=== PATIENT | female | born 1970 | race Caucasian/White ===

== ENCOUNTER 2019-07-13 03:12 | Emergency (ER) | payer MEDICAID, SELFPAY ==
[2019-07-13 03:31] VITALS: BP 134/83; PULSE 104; RESP 16; TEMP 36.6; O2SAT 97; BMI 31.1
--- NOTE | 2019-07-13 03:48 | HMH.EDUROGF ---
ED Disposition Clinical Impression: Vaginal bleeding Disposition: Home, Self-Care Condition on Discharge: Good Instructions: DI for Vaginal Bleeding Prescriptions: Estrogens, Conjugated [Premarin 0.625mg tablet] 0.625 mg PO DAILY 30 Days #25 tab Prescription Printed - Critical Care Critical Care Time: No Attestation: On , the high probability of a clinically significant, sudden or life threatening deterioration of the following system(s) required my full and direct attention, intervention and personal management. The time I documented below is in addition to time spent performing reported procedures but includes the following listed in this critical care notation. Medical Decision Making - Medical Records Medical records reviewed: Yes: I reviewed the patient's medical records. - Bobby Inquiry Pt receiving controlled substance: No Vital Signs: 07/13/19 03:31 Temperature 97.9 F Temperature Source Oral Pulse Rate [Left Brachial] 104 H Respiratory Rate 16 Blood Pressure [Left Arm] 134/83 Blood Pressure Mean [Left Arm] 100 Blood Pressure Source [Left Arm] Automatic Cuff Blood Pressure Position [Left Arm] Sitting 02 Sat by Pulse Oximetry 97 Oxygen Delivery Method Room Air - Lab Data Lab results reviewed: Yes: I reviewed the patient's lab results. Female Urogenital HPI - General Chief complaint: Vaginal Bleeding Stated complaint: Excessive Vaginal Bleeding Time Seen by Provider: 07/13/19 03:14 Mode of Arrival: Ambulatory Source of Information: Patient Limitations: No Limitations Description of Symptoms (Recalled from ER Triage Doc. by RN): Patient reports she is going through menopause and for the last four months she has had some light spotting. Today while playing with her grandson, patient reprots feeling a gush of blood. Patient for reports for several hours after she experienced some heavy bleeding with clots. Patient reports since then the bleeding has eased up but she still wanted to be evaluated. - History of Present Illness Complaint: vaginal bleeding Onset (ago): hour(s) Location: labia Radiation: non-radiating Severity: mild Severity scale (1-10): 2 Quality: cramping Relieving factors: none Exacerbating factors: none Vaginal discharge: blood Sexual activity: no : no - Related Data Previous Rx's Medication Instructions Recorded Estrogens, Conjugated [Premarin 0.625 mg PO DAILY 30 Days #25 tab 07/13/19 0.625mg tablet] Allergies Allergy/AdvReac Type Severity Reaction Status Date / Time No Known Allergies Allergy Verified 07/13/19 03:38 [facility] History - Hepatitis A Screen Drug use history?: No High risk sexual behaviors?: No History of sexually transmitted infection?: No Currently employed?: No Childcare worker?: No Do you have indoor plumbing?: Yes Do you have electricity?: Yes Attestation statement:: This patient has been screened for Hepatitis A risk factors. I have reviewed the patient's past medical history: Yes - Social History Smoking Status: Current every day smoker # Packs/Day (cigarettes): 1 Alcohol Intake: never Occupational Status: employed ROS Obtained: Yes All systems reviewed & no additional complaints - Constitutional Constitutional: Reports system reviewed and no additional complaints, except as docu - Eyes Eyes: Reports system reviewed and no additional complaints, except as docu - ENT Ears, Nose, Mouth, and Throat: Reports system reviewed and no additional complaints, except as docu - Cardiovascular Cardiovascular: Reports system reviewed and no additional complaints, except as docu - Respiratory Respiratory: Yes system reviewed and no additional complaints, except as docu - Gastrointestinal Gastrointestingal: Reports: system reviewed and no additional complaints, except as docu - Genitourinary Male Genitourinary: Reports system reviewed and no additional complaints, except as docu Female Genitourinary: Reports
[2019-07-13 04:09] LABS: Basophils # 0.1 K/mm3 (0-0.2); Basophils % 0.8 % (0.1-2.0); Eosinophils # 0.4 K/mm3 (0.0-0.4); Eosinophils % 2.7 % (0.1-12.0); Hematocrit 39.7 % (37.0-47.0); Hemoglobin 13.1 g/dL (12.2-16.2); Lymphocytes # 2.9 K/mm3 (0.7-4.5); Lymphocytes % 18.7 % (10-50); Mean Corpuscular HGB Conc 33.1 g/dL (31.8-35.4); Mean Corpuscular Hemoglobin 31.7 pg (27.0-31.2); Mean Corpuscular Volume 95.8 fl (81-99); Mean Platelet Volume 8.3 fl (7.4-10.4); Monocytes # 0.7 K/mm3 (0.1-1.0); Monocytes % 4.2 % (1.7-9.3); Neutrophils # 11.5 K/mm3 (1.8-7.8); Neutrophils % 73.6 % (37.0-80.0); Platelet Count 262 K/mm3 (142-424); Red Blood Count 4.14 M/mm3 (4.20-5.40); Red Cell Distribution Width 14.4 % (11.5-17.5); White Blood Count 15.6 K/mm3 (4.8-10.8)
[2019-07-13 04:11] LABS: MANUAL DIFFERENTIAL MANUAL DIFFERENTIAL (MANUAL DIFF)
[2019-07-13 04:26] LABS: Eosinophils % 2 % (0-3); Lymphocytes % 15 % (10-50); Monocytes % 2 % (2-9); Neutrophils % 78 % (42-76); Platelet Estimate Normal; RBC Morphology Normal; Total Cells Counted 100
[2019-07-13 04:29] VITALS: BP 130/84; PULSE 96; RESP 16; TEMP 36.6; O2SAT 98
== END 2019-07-13 04:31 | disposition home or self-care (01) ==
LOC: ER 04:11
PROVIDERS: Emergency Provider Family Medicine
DX: N92.4 Excessive bleeding in the premenopausal period (principal)
CPT/HCPCS: 85007; 85025; 99282

== ENCOUNTER → 2020-12-07 19:49 | Outpatient (CLI) | payer MEDICAID, SELFPAY | PROVIDERS: Visit Provider Urology | DX: Z01.812 Encounter for preprocedural laboratory examination (principal); Z11.52 Encounter for screening for COVID-19; N18.30 Chronic kidney disease, stage 3 unspecified | CPT/HCPCS: C9803; U0003; U0005 ==

== ENCOUNTER 2021-01-09 07:32 | Emergency (ER) | payer MEDICAID, SELFPAY ==
[2021-01-09 08:01] VITALS: BP 144/100; PULSE 108; RESP 16; TEMP 37.2; O2SAT 99; BMI 19.3
--- NOTE | 2021-01-09 08:21 | CT_ITS ---
PROCEDURE INFORMATION: Exam: CT Abdomen And Pelvis Without Contrast Exam date and time: 01/09/2021 8:21 AM Age: 50 years old Clinical indication: Bloating; Prior surgery; Surgery date: 6+ months; Surgery type: History of cervical cancer and surgery-- as well as kidney issues; Additional info: Abd pain- lower abd tender and pain TECHNIQUE: Imaging protocol: Computed tomography of the abdomen and pelvis without contrast. Radiation optimization: All CT scans at this facility use at least one of these dose optimization techniques: automated exposure control; mA and/or kV adjustment per patient size (includes targeted exams where dose is matched to clinical indication); or iterative reconstruction. COMPARISON: No relevant prior studies available. FINDINGS: Tubes, catheters and devices: Left nephrostomy tube in right ureteral stent are in place. Diaphragm: There is nonspecific elevation of the right hemidiaphragm. Liver: Normal. No mass. Gallbladder and bile ducts: There has been a cholecystectomy. Pancreas: Normal. No ductal dilation. Spleen: Normal. No splenomegaly. Adrenal glands: Normal. No mass. Kidneys and ureters: Left hydronephrosis. There is inflammatory left perinephric stranding with a small amount of perinephric fluid. Stomach and bowel: Unremarkable. No obstruction. No mucosal thickening. Appendix: No evidence of appendicitis. Intraperitoneal space: Unremarkable. No free air. No significant fluid collection. Vasculature: There is moderate aortoiliac atherosclerosis. Lymph nodes: Unremarkable. No enlarged lymph nodes. Urinary bladder: Unremarkable as visualized. Reproductive: Unremarkable as visualized. Bones/joints: Unremarkable. No acute fracture. Soft tissues: Unremarkable. IMPRESSION: 1. Left hydronephrosis. 2. There is inflammatory left perinephric stranding with a small amount of perinephric fluid.
--- NOTE | 2021-01-09 08:23 | HMH.EDGENADL ---
ED Disposition Clinical Impression: Obstructed nephrostomy tube, Left flank pain Disposition: Home, Self-Care Condition on Discharge: Good Additional Instructions: Please call your mattress maker on Monday for further evaluation, return to the ED with worsening pain, or no output from your nephrostomy tube, we will also refer you for a primary care physician who will be able to see you early next week. Prescriptions: Cefdinir [Omnicef 300mg Capsule] 300 mg PO BID 5 Days #10 cap Transmission Status: Pending to [facility] Oxycodone HCl [Oxycodone 5mg tab (IR)] 2.5 mg PO Q6 #6 tablet Transmission Status: Sent to [facility] Ondansetron [Zofran 4mg ODT] 4 mg PO Q6 PRN #12 tab PRN Reason: Nausea Transmission Status: Pending to [facility] Referrals: Provider,Referral, MD [Primary Care Provider] - - Critical Care Critical Care Time: No Attestation: On 01/09/21, the high probability of a clinically significant, sudden or life threatening deterioration of the following system(s) required my full and direct attention, intervention and personal management. The time I documented below is in addition to time spent performing reported procedures but includes the following listed in this critical care notation. Medical Decision Making - Medical Records Medical records reviewed: Yes: I reviewed the patient's medical records. - Bobby Inquiry Pt receiving controlled substance: No Bobby was queried for this patient: Yes (No active scripts) Vital Signs: 01/09/21 08:01 Temperature 98.9 F Temperature Source Oral Pulse Rate [Left Radial] 108 H Respiratory Rate 16 Blood Pressure [Right Arm] 144/100 H Blood Pressure Mean [Right Arm] 114 02 Sat by Pulse Oximetry 99 Oxygen Delivery Method Room Air - Lab Data Lab Results 01/09/21 08:00: WBC 12.2 H, RBC 3.71 L, Hgb 12.0 L, Hct 35.6 L, MCV 96.1, MCH 32.3 H, MCHC 33.7, RDW 15.8, Plt Count 243, MPV 8.3, Neut % (Auto) 90.9 H, Lymph % (Auto) 3.7 L, [place] % (Auto) 4.3, Eos % (Auto) 0.8, Baso % (Auto) 0.3, Neut # (Auto) 11.1 H, Lymph # (Auto) 0.5 L, [place] # (Auto) 0.5, Eos # (Auto) 0.1, Baso # (Auto) 0.0, Total Counted 100, Neutrophils % (Manual) 83 H, Band Neutrophils % 6.0, Lymphocytes % (Manual) 7 L, Monocytes % (Manual) 4, Platelet Estimate Normal, RBC Morphology Normal 01/09/21 08:00: Sodium 138, Potassium 3.8, Chloride 104, Carbon Dioxide 23, Anion Gap 14.8, BUN 23 H, Creatinine 1.60 H, Estimated Creat Clear 32, Estimated GFR 34 L, Est GFR ( Amer) 41 L, Glucose 131 H, Calcium 9.5, Total Bilirubin 0.3, AST 22, ALT 14, Alkaline Phosphatase 94, Total Protein 7.5, Albumin 3.9, Globulin 3.6 H, Albumin/Globulin Ratio 1.1 Result diagrams: 01/09/21 08:00 01/09/21 08:00 Orders (Tests/Meds): ED MEDICATIONS Discontinued Medications Generic Name Dose Route Start Last Admin Trade Name Freq PRN Reason Stop Dose Admin Sodium Chloride 1,000 mls @ 999 mls/hr 01/09/21 08:45 01/09/21 08:41 Sod Chlor 0.9% 1000ml Bag IV 01/09/21 09:45 999 mls/hr .Q1H1M JOHNSON Administration Ketorolac Tromethamine 15 mg 01/09/21 08:21 01/09/21 08:40 Ketorolac 30mg/Ml Vial IV 01/09/21 08:22 15 mg ONCE ONE Administration ORDERS Category Date Time Status UA [Urinalysis and Microscopic] Stat Lab 01/09/21 08:24 Ordered - Reevaluation(s) Time: 09:07 Reevaluation #1: pain improved, going to CT Medical Decision Narrative: Patient is a 50-year-old female presents ED today for left nephrostomy tube pain. Patient is well-appearing on initial evaluation in no acute distress, does appear to be in pain, no bleeding or evidence of infection from the nephrostomy tube site, but no urine flow from this per patient. Will order CBC, CMP, urinalysis. Patient will require CT scan of the abdomen and pelvis without IV contrast for left nephrostomy tube location. 15 mg of IV Toradol. CT scan obtained, and independently were reviewed with no marco
[2021-01-09 08:24] LABS: Basophils % 0.3 % (0.1-2.0); Eosinophils # 0.1 K/mm3 (0.0-0.4); Eosinophils % 0.8 % (0.1-12.0); Hematocrit 35.6 % (37.0-47.0); Lymphocytes # 0.5 K/mm3 (0.7-4.5); Lymphocytes % 3.7 % (10-50); Mean Corpuscular HGB Conc 33.7 g/dL (31.8-35.4); Mean Corpuscular Hemoglobin 32.3 pg (27.0-31.2); Mean Corpuscular Volume 96.1 fl (81-99); Mean Platelet Volume 8.3 fl (7.4-10.4); Monocytes # 0.5 K/mm3 (0.1-1.0); Monocytes % 4.3 % (1.7-9.3); Neutrophils # 11.1 K/mm3 (1.8-7.8); Neutrophils % 90.9 % (37.0-80.0); Platelet Count 243 K/mm3 (142-424); Red Blood Count 3.71 M/mm3 (4.20-5.40); Red Cell Distribution Width 15.8 % (11.5-17.5); White Blood Count 12.2 K/mm3 (4.8-10.8)
[2021-01-09 08:25] LABS: Chloride 104 mmol/L (98-107)
[2021-01-09 08:26] LABS: Potassium 3.8 mmoL/L (3.5-5.1); Sodium 138 mmol/L (136-145)
[2021-01-09 08:28] LABS: Alanine Aminotransferase 14 U/L (12-78); Alkaline Phosphatase 94 U/L (38-126); Anion Gap 14.8 mEq/L (5-15); Aspartate Amino Transferase 22 U/L (14-36); Bilirubin,Total 0.3 mg/dl (0.2-1.3); Blood Urea Nitrogen 23 mg/dl (7-17); Carbon Dioxide 23 mmol/L (22.0-30.0); Creatinine Clearance Estimated 32 mL/min (50-200); Estimated Glomerular Filt Rate 34 ml/min (>60); GFR (African American) 41 ML/MIN (>60)
[2021-01-09 08:29] LABS: Albumin Level 3.9 g/dl (3.5-5.0); Albumin/Globulin Ratio 1.1 (1.1-1.8); Calcium 9.5 mg/dl (8.4-10.2); Globulin 3.6 g/dL (1.3-3.2); Glucose 131 mg/dl (74-100); Total Protein,Serum 7.5 g/dl (6.3-8.2)
--- NOTE | 2021-01-09 08:36 | PC.NURSE ---
per pharmacy, pt is safe to have 15mg ketorolac
[2021-01-09 08:42] LABS: MANUAL DIFFERENTIAL MANUAL DIFFERENTIAL (MANUAL DIFF)
[2021-01-09 09:00] VITALS: BP 138/90; PULSE 102; RESP 16; TEMP 37.1; O2SAT 100
[2021-01-09 09:20] LABS: Lymphocytes % 7 % (10-50); Monocytes % 4 % (2-9); Neutrophils % 83 % (42-76); Platelet Estimate Normal; RBC Morphology Normal; Total Cells Counted 100
[2021-01-09 10:00] VITALS: BP 139/92; PULSE 104; RESP 17; O2SAT 99
[2021-01-09 11:00] VITALS: BP 131/89; PULSE 98; RESP 16; O2SAT 99
[2021-01-09 11:55] VITALS: BP 131/89; PULSE 98; RESP 16; TEMP 37.1; O2SAT 99
== END 2021-01-09 11:57 | disposition home or self-care (01) ==
PROVIDERS: Emergency Provider Student in an Organized Health Care Education/Training Program
DX: T83.092A Other mechanical complication of nephrostomy catheter, initial encounter (principal)
CPT/HCPCS: 74176; 80053; 85007; 85025; 87086; 87088; 87186; 96365; 96375; 99283

== ENCOUNTER 2021-05-02 19:59 | Inpatient (IN) | payer MEDICAID, SELFPAY ==
[2021-05-02] VITALS (8 sets, daily range): BP systolic 102–138; BP diastolic 70–81; PULSE 76–87; RESP 15–22; TEMP 36.7; O2SAT 97–100; BMI 19.2; BMI 19.3
--- NOTE | 2021-05-02 20:30 | ECG_ITS ---
APPROVED REPORT Exam: Resting ECG HR:84 bpm ECG Measurements Heart Rate 84 AXES PA 143 P 78 QRSd 73 QRS 63 QT 392 T 85 QTc 433 Conclusion SINUS RHYTHM MINIMAL VOLTAGE CRITERIA FOR LVH, CONSIDER NORMAL VARIANT [MEETS CRITERIA IN ONE OF: R(aVL), S(V1), R(V5), R(V5/V6)+S(V1)] NONSPECIFIC T-WAVE ABNORMALITY BORDERLINE ECG UNCONFIRMED REPORT Electronically signed by : Chay Goins MD 05/03/2021 13:40:34
--- NOTE | 2021-05-02 20:30 | XR_ITS ---
PROCEDURE INFORMATION: Exam: XR Chest Exam date and time: 05/02/2021 8:30 PM Age: 50 years old Clinical indication: Shortness of breath; Patient HX: PT states HX of cervical cancer in past; Additional info: SOA TECHNIQUE: Imaging protocol: XR of the chest. Views: 2 views. COMPARISON: CT ANGIO CHEST PE PROTOCOL 05/02/2021 8:29 PM FINDINGS: Lungs: Unremarkable. No consolidation. Pleural spaces: Unremarkable. No pleural effusion. No pneumothorax. Heart/Mediastinum: Unremarkable. No cardiomegaly. Bones/joints: Unremarkable. IMPRESSION: No acute findings.
--- NOTE | 2021-05-02 20:32 | CT_ITS ---
PROCEDURE INFORMATION: Exam: CTA Chest With Contrast Exam date and time: 05/02/2021 8:32 PM Age: 50 years old Clinical indication: Shortness of breath; Additional info: SOA sudden onset TECHNIQUE: Imaging protocol: Computed tomographic angiography of the chest with contrast. 3D rendering (Not supervised by radiologist): MIP and/or 3D reconstructed images were created by the technologist. Radiation optimization: All CT scans at this facility use at least one of these dose optimization techniques: automated exposure control; mA and/or kV adjustment per patient size (includes targeted exams where dose is matched to clinical indication); or iterative reconstruction. Contrast material: ISOVUE 370; Contrast volume: 70 ml; Contrast route: INTRAVENOUS (IV); COMPARISON: CT ABDOMEN PELVIS WO CON 01/09/2021 9:08 AM FINDINGS: Pulmonary arteries: Normal. No pulmonary emboli. Aorta: Unremarkable. No aortic aneurysm. No aortic dissection. Lungs: 2 cm mass in the inferior right upper lobe concerning for malignancy. Atelectasis in the right lower lobe. Slightly spiculated lesion in the left upper lobe 6 mm. Pleural spaces: There is a 20% right anterior basilar pneumothorax. Heart: Unremarkable. No cardiomegaly. No pericardial effusion. Lymph nodes: Unremarkable. No enlarged lymph nodes. Adrenal glands: Upper abdomen reveals thickening of bilateral adrenal glands and small amount of perihepatic free fluid. Bones/joints: Unremarkable. No acute fracture. Soft tissues: Unremarkable. Other findings: Emphysema. IMPRESSION: 1. No pulmonary embolism. 2. 20% right anterior basilar pneumothorax. 3. 2 cm mass in the inferior right upper lobe and 6 mm nodule in the left upper lobe both concerning for malignancy. Highly suspicious nodule(s). Consider non-emergent PET/CT, or tissue sampling.(Reference: Rebecca) References: Rebecca Persaud et al. Guidelines for Management of Incidental Pulmonary Nodules Detected on CT Images: From the Fleischner Society 2017. Radiology. 2017;284(1):228-243.
[2021-05-02 20:35] LABS: Coronavirus 19, PCR Not Detected (NotDetected); Influenza A, PCR Not Detected (NotDetected); Influenza B, PCR Not Detected (NotDetected)
[2021-05-02 20:37] LABS: Basophils # 0.1 K/mm3 (0-0.2); Basophils % 0.7 % (0.1-2.0); Eosinophils # 0.2 K/mm3 (0.0-0.4); Eosinophils % 2.2 % (0.1-12.0); Hematocrit 37.1 % (37.0-47.0); Hemoglobin 12.3 g/dL (12.2-16.2); Lymphocytes # 1.2 K/mm3 (0.7-4.5); Lymphocytes % 10.5 % (10-50); Mean Corpuscular HGB Conc 33.1 g/dL (31.8-35.4); Mean Corpuscular Volume 99.8 fl (81-99); Mean Platelet Volume 8.1 fl (7.4-10.4); Monocytes # 0.4 K/mm3 (0.1-1.0); Monocytes % 3.4 % (1.7-9.3); Neutrophils # 9.1 K/mm3 (1.8-7.8); Neutrophils % 83.1 % (37.0-80.0); Platelet Count 340 K/mm3 (142-424); Red Blood Count 3.72 M/mm3 (4.20-5.40); Red Cell Distribution Width 14.4 % (11.5-17.5); White Blood Count 10.9 K/mm3 (4.8-10.8)
--- NOTE | 2021-05-02 20:37 | HMH.EDSOB ---
ED Disposition Clinical Impression: Pneumothorax on right Disposition: Admitted as Observation Condition on Discharge: Good - Critical Care Critical Care Time: No Attestation: On 05/02/21, the high probability of a clinically significant, sudden or life threatening deterioration of the following system(s) required my full and direct attention, intervention and personal management. The time I documented below is in addition to time spent performing reported procedures but includes the following listed in this critical care notation. Medical Decision Making - Medical Records Medical records reviewed: Yes: I reviewed the patient's medical records. - Bobby Inquiry Pt receiving controlled substance: No Vital Signs: 05/02/21 20:17 05/02/21 20:30 05/02/21 20:45 Temperature 98.1 F Temperature Source Oral Pulse Rate 76 87 Pulse Rate [Right Radial] 83 Respiratory Rate 21 18 Blood Pressure 112/73 Blood Pressure [Right Arm] 138/81 Blood Pressure Mean [Right Arm] 100 Blood Pressure Source [Right Arm] Automatic Cuff Blood Pressure Position [Right Arm] Sitting 02 Sat by Pulse Oximetry 100 97 Oxygen Delivery Method Room Air Room Air - Lab Data Lab results reviewed: Yes: I reviewed the patient's lab results. Lab Results 05/02/21 20:05: WBC 10.9 H, RBC 3.72 L, Hgb 12.3, Hct 37.1, MCV 99.8 H, MCH 33.0 H, MCHC 33.1, RDW 14.4, Plt Count 340, MPV 8.1, Neut % (Auto) 83.1 H, Lymph % (Auto) 10.5, [place] % (Auto) 3.4, Eos % (Auto) 2.2, Baso % (Auto) 0.7, Neut # (Auto) 9.1 H, Lymph # (Auto) 1.2, [place] # (Auto) 0.4, Eos # (Auto) 0.2, Baso # (Auto) 0.1, ESR 79 H 05/02/21 20:05: Sodium 139, Potassium 3.6, Chloride 106, Carbon Dioxide 23, Anion Gap 13.6, BUN 21 H, Creatinine 1.10 H, Estimated Creat Clear 47, Estimated GFR 53 L, Est GFR ( Amer) 64, Glucose 131 H, Calcium 9.2, Total Bilirubin 0.3, Direct Bilirubin 0.3, Conjugated Bilirubin 0.0, Indirect Bilirubin 0.0, Unconjugated Bilirubin 0.1, AST 20, ALT 13, Alkaline Phosphatase 91, Troponin I < 0.01, C-Reactive Protein 28.8 H, Total Protein 7.6, Albumin 4.2, Procalcitonin 0.077 05/02/21 20:05: Lactate 1.8 05/02/21 20:05: SARS-CoV-2 (PCR) Not detected, Influenza A Untype (PCR) Not detected, Influenza Type B (PCR) Not detected 05/02/21 20:05: Serum HCG, Qual Negative Result diagrams: 05/02/21 20:05 05/02/21 20:05 Orders (Tests/Meds): ED MEDICATIONS Discontinued Medications Generic Name Dose Route Start Last Admin Trade Name Freq PRN Reason Stop Dose Admin Sodium Chloride 1,000 mls @ 999 mls/hr 05/02/21 20:30 05/02/21 20:53 Sod Chlor 0.9% 1000ml Bag IV 05/02/21 21:30 999 mls/hr .Q1H1M JOHNSON Administration Iopamidol 70 ml 05/02/21 21:43 05/02/21 21:45 Iopamidol-370 (76%);100ml Bottle IV 05/02/21 21:44 70 ml ONCE ONE Administration Methylprednisolone Sodium Succinate 125 mg 05/02/21 20:31 05/02/21 20:53 Methylprednisolone Sod Succ 125mg Vial IV 05/02/21 20:32 125 mg ONCE ONE Administration Sodium Chloride 40 ml 05/02/21 21:43 05/02/21 21:45 0.9 % Sodium Chloride 50 Ml Vial IV 05/02/21 21:44 40 ml ONCE ONE Administration Sodium Chloride 10 ml 05/02/21 21:43 05/02/21 21:45 Sodium Chloride 0.9% 10ml Syr (Rad Only) IV 05/02/21 21:44 10 ml ONCE ONE Administration ORDERS Category Date Time Status Troponin I Q3H Lab 05/02/21 23:45 Ordered Troponin I Q3H Lab 05/03/21 02:45 Ordered Blood Culture Stat Micro 05/02/21 20:05 Received - Radiology Data #1 Image(s): Chest Image Reviewed: Yes I have reviewed radiologist's interpretation Preliminary Findings: Normal/NAD - CT Data CT Scan: Chest Time Received: 22:[address] Reviewed: Yes: I have viewed the radiologist's interpretation Preliminary Findings: Abnormal (see report ) - ECG Data Tracing #1 Normal Sinus Rhythm: Yes Ischemic changes: non-specific ST-T wave changes - Physician Consults Physician Consulted: kristin Wooten
[2021-05-02 20:43] LABS: Alanine Aminotransferase 13 U/L (12-78); Albumin Level 4.2 g/dl (3.5-5.0); Alkaline Phosphatase 91 U/L (38-126); Anion Gap 13.6 mEq/L (5-15); Aspartate Amino Transferase 20 U/L (14-36); Bilirubin,Direct 0.3 mg/dl (0.0-0.4); Bilirubin,Total 0.3 mg/dl (0.2-1.3); Bilirubin,Unconjugated 0.1 mg/dL (0.0-1.1); Blood Urea Nitrogen 21 mg/dl (7-17); Calcium 9.2 mg/dl (8.4-10.2); Carbon Dioxide 23 mmol/L (22.0-30.0); Chloride 106 mmol/L (98-107); Creatinine Clearance Estimated 47 mL/min (50-200); Estimated Glomerular Filt Rate 53 ml/min (>60); GFR (African American) 64 ML/MIN (>60); Glucose 131 mg/dl (74-100); HCG Qualitative, Serum Negative (Negative); Potassium 3.6 mmoL/L (3.5-5.1); Sodium 139 mmol/L (136-145); Total Protein,Serum 7.6 g/dl (6.3-8.2)
[2021-05-02 20:49] LABS: C-Reactive Protein 28.8 mg/L (0-4)
[2021-05-02 21:01] LABS: Lactic Acid 1.8 mmol/L (0.7-2.1); Troponin I < 0.01 ng/ml (0.00-0.034)
[2021-05-02 21:02] LABS: Procalcitonin 0.077 ng/mL (0.0-2.0)
[2021-05-02 21:06] LABS: Erythrocyte Sedimentation Rate 79 mm/hr (0-20)
--- NOTE | 2021-05-02 22:07 | PC.NURSE ---
received call back from ad re: patient. md on phone at this time.
--- NOTE | 2021-05-02 22:23 | PC.NURSE ---
paged dr jarvis for care.
--- NOTE | 2021-05-02 22:32 | PC.NURSE ---
Notified roundhouse supervisor of pt admission and need for bed assignment
--- NOTE | 2021-05-02 23:19 | PC.NURSE ---
PT ARRIVED TO FLOOR VIA W/C FROM ED W/STAFF @ [id number]
--- NOTE | 2021-05-02 23:40 | PC.NURSE ---
Pt given soup, crackers, soda, and PB as she missed dinner.
[2021-05-03] VITALS (9 sets, daily range): BP systolic 119–157; BP diastolic 75–97; PULSE 77–97; RESP 17–20; TEMP 36.3–37.1; O2SAT 95–99
--- NOTE | 2021-05-03 03:35 | PC.WOUNDNOTE ---
Pt is A&Ox4 and has ambulated well t/o shift. Denies any chest pain or SOB that brought her to ER. She does report pelvic pain that is chronic and has kept her up tonight, medicated per MAR with relief. Denies nausea, vomiting and diarrhea t/o shift. Does report BM this am. PIV to LAC is patent and blood return is noted. Lungs sounds are clear, scattered rhonchi noted. She continues on room air sats 97-100%. NSR on tele. Call light within reach.
--- NOTE | 2021-05-03 06:48 | PC.NURSE ---
DR HANNA NOTIFIED OF CONSULT
--- NOTE | 2021-05-03 07:00 | XR_ITS ---
FINAL REPORT TECHNIQUE: Single view chest CLINICAL HISTORY: pneumothorax follow-up COMPARISON: 05/02/2021 FINDINGS: A single view of the chest was obtained. The heart and mediastinum are within normal limits. Small right pneumothorax is stable superiorly, measuring 12 mm but has increased laterally, now measuring 8 mm. There is mild bibasilar atelectasis. Osseous structures are unremarkable. IMPRESSION: Small but increasing right pneumothorax as above. Reviewed, Interpreted and Dictated by Pako Slade III, MD Transcribed by Erika Blanchard Authenticated by Pako Slade III, MD on 05/03/2021 08:04:47 AM [facility]
[2021-05-03 07:10] LABS: Blood Urea Nitrogen 17 mg/dl (7-17); Calcium 8.6 mg/dl (8.4-10.2); Carbon Dioxide 19 mmol/L (22.0-30.0); Chloride 111 mmol/L (98-107); Creatinine Clearance Estimated 57 mL/min (50-200); Estimated Glomerular Filt Rate 67 ml/min (>60); GFR (African American) 81 ML/MIN (>60); Glucose 138 mg/dl (74-100); Sodium 138 mmol/L (136-145)
--- NOTE | 2021-05-03 07:26 | PC.NURSE ---
s/w Dr. Justin he would like pt on O2 @ 2LPM NC despite adequate room air sats d/t pneumothorax.
--- NOTE | 2021-05-03 07:27 | P.CONPHA_ITS ---
[facility] Pharmacy VTE Monitoring - Patient Demographics Admission date: 05/02/21 Report Date: 05/03/21 Time: 07:27 Allergies/Adverse Reactions: Patient Allergies No Known Allergies Allergy (Verified 07/13/19 03:38) Height: 1.57 m Weight: 47.627 kg Patient Problems: Current Active Problems Pneumothorax on right (Acute) - VTE Risk Labs: VTE Related Lab Results Hgb 12.3 g/dL (12.2-16.2) 05/02/21 20:05 Hct 37.1 % (37.0-47.0) 05/02/21 20:05 Plt Count 340 K/mm3 (142-424) 05/02/21 20:05 BUN 17 mg/dl (7-17) 05/03/21 06:50 Creatinine 0.90 mg/dl (0.52-1.04) 05/03/21 06:50 Estimated Creat Clear 57 mL/min (50-200) 05/03/21 06:50 VTE Score: 7 VTE Risk Level: Moderate Risk - Prophylaxis VTE Prophylaxis Ordered?: Yes Types of VTE Prophylaxis: TEDS Knee High Location of Applied Device: Bilateral Lower Extremeties
--- NOTE | 2021-05-03 07:30 | HMH.HP ---
*Admission Date: 05/02/21 *Chief complaint: Shortness of breath, chest pain *History of present illness: 50-year-old female presented to the emergency department after acute onset of right lateral chest pain. Patient reports she was in her normal state of health when pain suddenly developed at home. When pain did not seem to be easing she presented to the emergency department. Patient is undergoing malignancy work-up for a right lung mass and had recently undergone CT-guided biopsy on April 28. Patient is a cigarette smoker. In an attempt to cut back she has been vaping. She also admits to smoking marijuana. Work-up in the emergency department included initial chest x-ray which was unremarkable. Due to patient's pain and possible malignancy there was concern for PE. CT scan was negative for PE but did reveal a pneumothorax. Patient was admitted for conservative treatment of her pneumothorax. This morning she has been placed on oxygen. [facility] History I have reviewed the patient's past medical history: Yes Medical History: Reports:: Cancer, Renal Disease Denies:: Diabetes Mellitus Type 1, Diabetes Mellitus Type 2 *Have you ever received a pneumonia vaccine?: No *Have you received a flu vaccine this season?: No Other Medical History: Reports: Radiation Therapy Other Surgeries: Yes: Cholecystectomy, (x1), Ureter Stent Amputation: No Fractures: No - *Social History Last grade of school completed: High school graduate Smoking Status: Current every day smoker Tobacco Type: cigarettes, e-cigarettes # Packs/Day (cigarettes): 1 Alcohol Intake: never Substance Use Type: marijuana Last Used Substance: hours (ago) *Occupational Status:: unemployed Housing: house Household Members: children *Travel in the last 8 weeks: None Family Hx:: Cancer, Coronary Artery Disease, Diabetes, Heart Attack, Hyperlipidemia, Hypertension, Other Review of Systems - Review of Systems Review of systems:: pertinent systems reviewed and negative unless documented below - Constitutional Denies body ache(s), Denies chills, Denies lack of energy - *Neurologic Denies seizure-like activity Meds Home Medications Medication Instructions Recorded Confirmed Type Tamsulosin HCl 0.4 mg PO DAILY 05/03/21 05/03/21 History Allergies Allergy/AdvReac Type Severity Reaction Status Date / Time No Known Allergies Allergy Verified 07/13/19 03:38 Exam Vital signs and Labs for Last 24 Hours: Temp Pulse Resp BP Pulse Ox 97.6 F 83 20 147/78 H 98 05/03/21 04:00 05/03/21 04:00 05/03/21 04:00 05/03/21 04:00 05/03/21 04:00 Laboratory Results - last 24 hr 05/02/21 20:05: WBC 10.9 H, RBC 3.72 L, Hgb 12.3, Hct 37.1, MCV 99.8 H, MCH 33.0 H, MCHC 33.1, RDW 14.4, Plt Count 340, MPV 8.1, Neut % (Auto) 83.1 H, Lymph % (Auto) 10.5, [place] % (Auto) 3.4, Eos % (Auto) 2.2, Baso % (Auto) 0.7, Neut # (Auto) 9.1 H, Lymph # (Auto) 1.2, [place] # (Auto) 0.4, Eos # (Auto) 0.2, Baso # (Auto) 0.1, ESR 79 H 05/02/21 20:05: Sodium 139, Potassium 3.6, Chloride 106, Carbon Dioxide 23, Anion Gap 13.6, BUN 21 H, Creatinine 1.10 H, Estimated Creat Clear 47, Estimated GFR 53 L, Est GFR ( Amer) 64, Glucose 131 H, Calcium 9.2, Total Bilirubin 0.3, Direct Bilirubin 0.3, Conjugated Bilirubin 0.0, Indirect Bilirubin 0.0, Unconjugated Bilirubin 0.1, AST 20, ALT 13, Alkaline Phosphatase 91, Troponin I < 0.01, C-Reactive Protein 28.8 H, Total Protein 7.6, Albumin 4.2, Procalcitonin 0.077 05/02/21 20:05: Lactate 1.8 05/02/21 20:05: SARS-CoV-2 (PCR) Not detected, Influenza A Untype (PCR) Not detected, Influenza Type B (PCR) Not detected 05/02/21 20:05: Serum HCG, Qual Negative 05/03/21 06:50: Sodium 138, Potassium 4.0, Chloride 111 H, Carbon Dioxide 19 L, Anion Gap 12.0, BUN 17, Creatinine 0.90, Estimated Creat Clear 57, Estimated GFR 67, Est GFR ( Amer) 81 D, Glucose 138 H, Calcium 8.6 I & O for Last 24 hours: Intake & Output 04/30/21 05/01/21 05/02/21 0
--- NOTE | 2021-05-03 09:19 | HMH.PHAINT ---
Home med rec complete
[2021-05-03 13:00] LABS: Basophils % 0.3 % (0.1-2.0); Eosinophils % 0.2 % (0.1-12.0); Hematocrit 36.2 % (37.0-47.0); Hemoglobin 11.6 g/dL (12.2-16.2); Lymphocytes # 0.9 K/mm3 (0.7-4.5); Lymphocytes % 8.3 % (10-50); Mean Corpuscular Hemoglobin 31.9 pg (27.0-31.2); Mean Corpuscular Volume 99.9 fl (81-99); Mean Platelet Volume 8.1 fl (7.4-10.4); Monocytes # 0.3 K/mm3 (0.1-1.0); Monocytes % 2.9 % (1.7-9.3); Neutrophils % 88.3 % (37.0-80.0); Platelet Count 350 K/mm3 (142-424); Red Blood Count 3.63 M/mm3 (4.20-5.40); Red Cell Distribution Width 14.4 % (11.5-17.5); White Blood Count 11.3 K/mm3 (4.8-10.8)
[2021-05-03 13:07] LABS: MANUAL DIFFERENTIAL MANUAL DIFFERENTIAL (MANUAL DIFF)
--- NOTE | 2021-05-03 14:41 | HMH.GSCON ---
*Admission Date: 05/02/21 *Reason for consult:: Right-sided pneumothorax *History of present illness: Patient is a 50-year-old female, smoker, known right lung mass which is being worked up for malignancy. She had a CT-guided biopsy done on Monday04/28/2021 at [facility]. She been in her usual state of health until yesterday afternoon approximately 4 5 PM at which time she had acute onset of sharp severe right-sided abdominal pain with radiation into her right back and shoulder area. She was quite concerned and presented to the emergency department. Initial chest x-ray was unremarkable for acute pathology. She did have CT scan for PE protocol which did reveal anterior apical pneumothorax. She was admitted for inpatient management and hopeful conservative management of her pneumothorax. Surgery was consulted for possible need for chest tube. Repeat chest x-ray this morning reveals small pneumothorax. Patient is clinically much better. She says her pain is resolved. She denies shortness of breath and is able to take deep breaths without issue. Review of Systems - Review of Systems Review of systems:: pertinent systems reviewed and negative unless documented below - *Neurologic Denies seizure-like activity [facility] History I have reviewed the patient's past medical history: Yes Medical History: Reports:: Cancer, Renal Disease Denies:: Diabetes Mellitus Type 1, Diabetes Mellitus Type 2 *Have you ever received a pneumonia vaccine?: No *Have you received a flu vaccine this season?: No Other Medical History: Reports: Radiation Therapy Other Surgeries: Yes: Cholecystectomy, (x1), Ureter Stent Amputation: No Fractures: No - *Social History Last grade of school completed: High school graduate Smoking Status: Current every day smoker Tobacco Type: cigarettes, e-cigarettes # Packs/Day (cigarettes): 1 Alcohol Intake: never Substance Use Type: marijuana Last Used Substance: hours (ago) *Occupational Status:: unemployed Housing: house Household Members: children *Travel in the last 8 weeks: None Family Hx:: Cancer, Coronary Artery Disease, Diabetes, Heart Attack, Hyperlipidemia, Hypertension, Other Meds Home Medications Medication Instructions Recorded Confirmed Type Albuterol Sulfate [Albuterol 2 puffs IH Q6HP PRN 05/03/21 05/03/21 History Sulfate Hfa] Tamsulosin HCl 0.4 mg PO DAILY 05/03/21 05/03/21 History Allergies Allergy/AdvReac Type Severity Reaction Status Date / Time No Known Allergies Allergy Verified 07/13/19 03:38 Exam Vital signs and Labs for Last 24 Hours: Temp Pulse Resp BP Pulse Ox 98.4 F 85 20 152/85 H 97 05/03/21 12:00 05/03/21 12:00 05/03/21 12:00 05/03/21 12:00 05/03/21 12:00 Laboratory Results - last 24 hr 05/02/21 20:05: WBC 10.9 H, RBC 3.72 L, Hgb 12.3, Hct 37.1, MCV 99.8 H, MCH 33.0 H, MCHC 33.1, RDW 14.4, Plt Count 340, MPV 8.1, Neut % (Auto) 83.1 H, Lymph % (Auto) 10.5, [place] % (Auto) 3.4, Eos % (Auto) 2.2, Baso % (Auto) 0.7, Neut # (Auto) 9.1 H, Lymph # (Auto) 1.2, [place] # (Auto) 0.4, Eos # (Auto) 0.2, Baso # (Auto) 0.1, ESR 79 H 05/02/21 20:05: Sodium 139, Potassium 3.6, Chloride 106, Carbon Dioxide 23, Anion Gap 13.6, BUN 21 H, Creatinine 1.10 H, Estimated Creat Clear 47, Estimated GFR 53 L, Est GFR ( Amer) 64, Glucose 131 H, Calcium 9.2, Total Bilirubin 0.3, Direct Bilirubin 0.3, Conjugated Bilirubin 0.0, Indirect Bilirubin 0.0, Unconjugated Bilirubin 0.1, AST 20, ALT 13, Alkaline Phosphatase 91, Troponin I < 0.01, C-Reactive Protein 28.8 H, Total Protein 7.6, Albumin 4.2, Procalcitonin 0.077 05/02/21 20:05: Lactate 1.8 05/02/21 20:05: SARS-CoV-2 (PCR) Not detected, Influenza A Untype (PCR) Not detected, Influenza Type B (PCR) Not detected 05/02/21 20:05: Serum HCG, Qual Negative 05/03/21 06:50: Sodium 138, Potassium 4.0, Chloride 111 H, Carbon Dioxide 19 L, Anion Gap 12.0, BUN 17, Creatinine 0.90, Estimated Creat Clear 57, Estimated GFR 67, Est GFR ( Am
[2021-05-03 15:32] LABS: Lymphocytes % 11 % (10-50); Macrocytosis 1+; Monocytes % 3 % (2-9); Neutrophils % 86 % (42-76); Platelet Estimate Normal; Total Cells Counted 100
--- NOTE | 2021-05-03 16:24 | PC.NURSE ---
1620 PT AWAKE ALL THIS SHIFT, PRN MEDICATIONS GIVEN FOR CHRONIC PELVIC PAIN WITH ADEQUATE RESULTS. A&O X 4. HEART RATE REGULAR. VSS, AFEBRILE. PT DENIES CHEST PAIN OR SOA. LUNGS CLEAR, DIMINISHED RIGHT LOWER BASE. NO EDEMA. IV PATENT. TOLERATING REGULAR DIET. VOIDS WITHOUT DIFFICULTY. AMBULATES WITHOUT ASSISTANCE. CALL LIGHT WITHIN REACH. PT WITHOUT NEEDS AT THIS TIME
--- NOTE | 2021-05-03 17:53 | PC.NURSE ---
PT TO RADIOLOGY AT THIS TIME FOR CXR
--- NOTE | 2021-05-03 18:00 | XR_ITS ---
PROCEDURE INFORMATION: Exam: XR Chest Exam date and time: 05/03/2021 6:00 PM Age: 50 years old Clinical indication: Condition or disease; Lung condition and disease; Pneumothorax; Additional info: Follow-up right pneumothorax TECHNIQUE: Imaging protocol: XR of the chest. Views: 2 views. COMPARISON: CR XR CHEST PORTABLE 05/03/2021 7:11 AM FINDINGS: Lungs: 2 cm mass seen along the minor fissure on the prior CT exam again visible in the central to lower right lung. Mild hazy airspace opacity in the right lower lobe corresponding with ground-glass density seen on the earlier CT, which could be edema or pneumonia. No acute findings in the left lung. Tiny nodule or airspace opacity in the left upper lobe seen on the prior CT is not well demonstrated on this chest x-ray. Pleural spaces: Slight interval change in right pneumothorax compared with the earlier exam 7:11 a.m.. Pulmonary-pleural separation at the superior tip of right lung apex is approximately 10 mm on this exam compared with 1.3 cm on the earlier exam, by my measurement. Infero-lateral pulmonary-pleural separation approximately 11 mm by my measurement on the earlier exam, and increased to 2 cm on this follow-up exam. The pneumothorax is poorly delineated on the lateral view. No pleural effusion. No acute findings on the left. Heart/Mediastinum: The cardiac silhouette is normal. Bones/joints: There is no evidence of acute fracture. Organs: Cholecystectomy clips again noted in the right upper quadrant abdomen IMPRESSION: 1. Persistent small right pneumothorax, estimated less than 15%, which appears minimally decreased at the right apex and slightly enlarged at the inferolateral right chest compared with the prior chest x-ray, as detailed above. 2. 2 cm right pulmonary nodule again noted, worrisome for malignancy. 3. Persistent mild hazy ground-glass disease in the posterior right lower lobe, which could be edema or pneumonia.
[2021-05-04] VITALS: PULSE 90
[2021-05-04 03:47] VITALS: BP 108/68; PULSE 86; RESP 18; TEMP 36.3; O2SAT 97
[2021-05-04 04:00] VITALS: PULSE 80
--- NOTE | 2021-05-04 04:27 | PC.NURSE ---
Patient has not slept well this shift. Pt has c/o of pain x3 this shift in lower abdomen, admin meds per MAR with some relief. Pt has been ambulating to bathroom independently with no issues. Pt has not voiced any c/o of SOA or chest pain this shift. Patient's daughter at bedside.
[2021-05-04 04:56] VITALS: BMI 19.9
--- NOTE | 2021-05-04 06:00 | XR_ITS ---
PROCEDURE INFORMATION: Exam: XR Chest Exam date and time: 05/04/2021 6:00 AM Age: 50 years old Clinical indication: Condition or disease; Lung condition and disease; Pneumothorax; Patient HX: Right sided pneumo f/u; Additional info: Pneumothorax progress study TECHNIQUE: Imaging protocol: XR of the chest. Views: 2 views. COMPARISON: CR XR CHEST 2V 05/03/2021 5:53 PM FINDINGS: Tubes, catheters and devices: Surgical clips, RUQ. Lungs: There is a mass in the right midlung which is better appreciated on CT from 05/02/2021. No new focal consolidation. Pleural spaces: Stable small right pneumothorax. Heart/Mediastinum: Unremarkable. No cardiomegaly. Diaphragm: Slight elevation of the right hemidiaphragm. Bones/joints: Mild degenerative changes of the spine. IMPRESSION: Stable small right pneumothorax. Otherwise, as above.
--- NOTE | 2021-05-04 07:42 | P.PN_ITS ---
Internal Medicine - PN: Subj *Date: 05/04/21 *Time: 07:42 Interval history: Patient is remained stable. No acute events. The abnormal sensation she felt in the right chest with deep breathing has resolved. O2 sats have remained in the high 90s. She denies chest pain or shortness of breath. Exam Vital signs and Labs for Last 24 Hours: Temp Pulse Resp BP Pulse Ox 97.3 F L 80 18 108/68 L 97 05/04/21 03:47 05/04/21 04:00 05/04/21 03:47 05/04/21 03:47 05/04/21 03:47 Laboratory Results - last 24 hr 05/03/21 12:35: WBC 11.3 H, RBC 3.63 L, Hgb 11.6 L, Hct 36.2 L, MCV 99.9 H, MCH 31.9 H, MCHC 32.0, RDW 14.4, Plt Count 350, MPV 8.1, Neut % (Auto) 88.3 H, Lymph % (Auto) 8.3 L, [place] % (Auto) 2.9, Eos % (Auto) 0.2, Baso % (Auto) 0.3, Neut # (Auto) 10.0 H, Lymph # (Auto) 0.9, [place] # (Auto) 0.3, Eos # (Auto) 0.0, Baso # (Auto) 0.0, Total Counted 100, Neutrophils % (Manual) 86 H, Lymphocytes % (Manual) 11, Monocytes % (Manual) 3, Platelet Estimate Normal, Macrocytosis 1+ I & O for Last 24 hours: Intake & Output 05/01/21 05/02/21 05/03/21 05/04/21 10:59 11:59 11:59 11:59 Weight 104 lb 15.993 oz 108 lb 2 oz Narrative: Patient is in no distress. Lungs are clear with a crackle at the right lateral lung. Heart has a regular rate and rhythm. X-ray from yesterday evening showed slight enlargement laterally in the patient's pneumothorax compared to morning chest film. Chest x-ray performed this morning shows stabilization of the pneumothorax. Assessment and Plan (1) Pneumothorax on right Status: Acute Category: Medical Code(s): J93.9 - Pneumothorax, unspecified (2) Chronic pelvic pain in female Status: Acute Category: Medical Code(s): R10.2 - Pelvic and perineal pain; G89.29 - Other chronic pain - Assessment and plan all Dx Assessment and Plan for all problems:: 1. Plan to repeat patient's chest x-ray again later this evening and if pneumothorax remains stable at this time patient can be discharged home with instructions for urgent return to the facility should she develop chest pain and shortness of breath 2. Patient has chronic pelvic pain from pelvic radiation. Patient will be given oxycodone during hospitalization
[2021-05-04 08:00] VITALS: BP 125/78; PULSE 78; PULSE 80; PULSE 84; RESP 20; TEMP 36.6; O2SAT 98
--- NOTE | 2021-05-04 08:30 | HMH.GSPN ---
Subjective Narrative: Patient is remained stable. He currently denies chest pain or shortness of breath. Progress Note: A&P (1) Pneumothorax on right Status: Acute Assessment and plan: Chest x-ray this morning stable from chest x-ray yesterday evening. Clinically doing quite well. Plan is for repeat chest x-ray later today and if continues to be stable discharge with close outpatient follow-up. (2) Chronic pelvic pain in female Status: Acute Exam Vital signs and Labs for Last 24 Hours: Temp Pulse Resp BP Pulse Ox 97.3 F L 80 18 108/68 L 97 05/04/21 03:47 05/04/21 04:00 05/04/21 03:47 05/04/21 03:47 05/04/21 03:47 Laboratory Results - last 24 hr 05/03/21 12:35: WBC 11.3 H, RBC 3.63 L, Hgb 11.6 L, Hct 36.2 L, MCV 99.9 H, MCH 31.9 H, MCHC 32.0, RDW 14.4, Plt Count 350, MPV 8.1, Neut % (Auto) 88.3 H, Lymph % (Auto) 8.3 L, [place] % (Auto) 2.9, Eos % (Auto) 0.2, Baso % (Auto) 0.3, Neut # (Auto) 10.0 H, Lymph # (Auto) 0.9, [place] # (Auto) 0.3, Eos # (Auto) 0.0, Baso # (Auto) 0.0, Total Counted 100, Neutrophils % (Manual) 86 H, Lymphocytes % (Manual) 11, Monocytes % (Manual) 3, Platelet Estimate Normal, Macrocytosis 1+ I & O for Last 24 hours: Intake & Output 05/01/21 05/02/21 05/03/21 05/04/21 10:59 11:59 11:59 11:59 Weight 104 lb 15.993 oz 108 lb 2 oz - Constitutional no acute distress
[2021-05-04 12:00] VITALS: BP 131/79; PULSE 70; PULSE 73; RESP 18; TEMP 36.4; O2SAT 100
[2021-05-04 13:06] VITALS: BMI 19.8
[2021-05-04 16:00] VITALS: BP 134/84; PULSE 72; PULSE 84; RESP 16; TEMP 36.6; O2SAT 100
--- NOTE | 2021-05-04 16:00 | XR_ITS ---
FINAL REPORT CLINICAL HISTORY: pneumothorax progress, results of chest x-ray will determine if patient can be discharged from hospital today. COMPARISON: 9 hours prior FINDINGS: Two views of the chest were obtained. The heart size and pulmonary vascularity are within normal limits. The mediastinum is normal. No acute pulmonary abnormality is identified. There is a persistent small right pneumothorax. A basilar component measures up to 17 mm and previously measured 20 mm. The bony thorax is intact. IMPRESSION: Persistent right pneumothorax with mild improvement in the basilar component. Reviewed, Interpreted and Dictated by Pako Slade III, MD Transcribed by Guero Pascual Authenticated by Pako Slade III, MD on 05/04/2021 04:15:42 PM [facility]
--- NOTE | 2021-05-04 18:41 | PC.NURSE ---
Permission received from Cata Justin to complete pt 1600 xray ear;y (at 1440). results given to Dr Moore at 1618. Per Dr Moore pt is ok to dc with repeat xray in 48hrs and advised to return to er if cp develops or soa returns. Dr Justin notified of Dr Moore agreement for pt to go home at 1641. pt discharge order entered by
--- NOTE | 2021-05-05 15:07 | CARE MANAGER ---
CM called to discuss post discharge status with patient. Patient was resting at time of call, so daughter provided the following information. Patient is doing well, taking medication as prescribed, and is planning to come for an x-ray tomorrow. Patient has no known needs at this time.
--- NOTE | 2021-05-20 15:17 | P.DS_ITS ---
General - General Admission date:: 05/02/21 Discharge date: 05/04/21 HPI HPI: 50-year-old female presented to the emergency department after acute onset of right lateral chest pain. Patient reports she was in her normal state of health when pain suddenly developed at home. When pain did not seem to be easing she presented to the emergency department. Patient is undergoing malignancy work-up for a right lung mass and had recently undergone CT-guided biopsy on April 28. Patient is a cigarette smoker. In an attempt to cut back she has been vaping. She also admits to smoking marijuana. Work-up in the emergency department included initial chest x-ray which was unremarkable. Due to patient's pain and possible malignancy there was concern for PE. CT scan was negative for PE but did reveal a pneumothorax. Patient was admitted for conservative treatment of her pneumothorax. This morning she has been placed on oxygen. Hospital Course Hospital Course: Patient was admitted and observed for worsening pneumothorax. Pneumothorax initially worsened slightly. Patient was placed on oxygen via [place]. Pneuomothorax improved. Patient was discharged on 05/04 after pneumothorax had shown stability /improvement for 24 hours. She will have a repeat film on 05/06. She will return to the facility if she develops any acute symptoms associated with pneumothorax. Dr. Moore was consulted during hospitalization for management. Objective Vital signs: Temp Pulse Resp BP Pulse Ox 97.9 F 72 16 134/84 100 05/04/21 16:00 05/04/21 16:00 05/04/21 16:00 05/04/21 16:00 05/04/21 16:00 DS: Diagnosis - Discharge Diagnosis (1) Pneumothorax on right Status: Acute (2) Chronic pelvic pain in female Status: Acute Discharge Plan - Patient Discharge Instructions ACTIVITY: Continue current activity DIET: continue same diet Patient Instructions: Pneumothorax, DI for Pneumothorax, DI for Chest Pain - Follow up Plan Disposition: Home, Self-Care Condition at discharge:: Improved Home Medications: Home Medications Medication Instructions Recorded Confirmed Type Albuterol Sulfate [Albuterol 2 puffs IH Q6HP PRN 05/03/21 05/03/21 History Sulfate Hfa] Tamsulosin HCl 0.4 mg PO DAILY 05/03/21 05/03/21 History Prescriptions/Medication Reconciliation: Continued Tamsulosin HCl 0.4 mg PO DAILY Albuterol Sulfate [Albuterol Sulfate Hfa] 2 puffs IH Q6HP PRN PRN Reason: Shortness Of Breath Or Wheezing - Problem Reconciliation Problems Reviewed?: Yes
== END 2021-05-04 18:40 | disposition home or self-care (01) | DRG 201 ==
LOC: ER 20:50 → 2ND 22:52 → OB 05-03 20:39 → 2ND 05-03 21:14
PROVIDERS: Admitting Provider Family Medicine; Emergency Provider Emergency Medicine; Visit Provider Family Medicine
DX: J95.811 Postprocedural pneumothorax (principal); Z85.41 Personal history of malignant neoplasm of cervix uteri; F17.290 Nicotine dependence, other tobacco product, uncomplicated; R91.8 Other nonspecific abnormal finding of lung field; Y84.8 Other medical procedures as the cause of abnormal reaction of the patient, or of later complication, without mention of misadventure at the time of the procedure; R10.2 Pelvic and perineal pain; G89.29 Other chronic pain
CPT/HCPCS: 36415; 71045; 71046; 71275; 80048; 80076; 83605; 84145; 84484; 84703; 85007; 85025; 85651; 86140; 87040; 93005; 94761; 96365; 96375; 99285; C9803; J2405; Q9967; U0003; U0005

== ENCOUNTER → 2021-05-06 10:07 | Outpatient (CLI) | payer MEDICAID, SELFPAY ==
--- NOTE | 2021-05-06 10:21 | XR_ITS ---
FINAL REPORT CLINICAL HISTORY: pneumothorax COMPARISON: May 04, 2021 FINDINGS: Two views of the chest were obtained. The heart size and pulmonary vascularity are within normal limits. The mediastinum is normal. No acute pulmonary abnormality is identified. There is a persistent right pneumothorax. The apical component measures 12 mm and previously measured 10 mm. The basilar component measures 8 mm and previously measured 17 mm. The bony thorax is intact. IMPRESSION: Persistent but slightly improved right pneumothorax. Reviewed, Interpreted and Dictated by Pako Slade III, MD Transcribed by Guero Pascual Authenticated by Pako Slade III, MD on 05/06/2021 11:16:02 AM [facility]
== END ==
PROVIDERS: PCP Family Medicine; Visit Provider Family Medicine
DX: J93.9 Pneumothorax, unspecified (principal)
CPT/HCPCS: 71046

== ENCOUNTER 2021-06-15 02:39 | Inpatient (IN) | payer MEDICAID, SELFPAY ==
[2021-06-15] VITALS (12 sets, daily range): BP systolic 89–138; BP diastolic 55–86; PULSE 72–107; RESP 16–22; TEMP 36.4–36.6; O2SAT 85–97; BMI 17.9
--- NOTE | 2021-06-15 02:47 | ECG_ITS ---
APPROVED REPORT Exam: Resting ECG HR:106 bpm ECG Measurements Heart Rate 106 AXES AK 128 P 85 QRSd 75 QRS 85 QT 316 T 81 QTc 378 Conclusion SINUS TACHYCARDIA Bi-atrial abnormality LEFT VENTRICULAR HYPERTROPHY AND ST-T CHANGE [VOLTAGE CRITERIA PLUS ST/T ABNORMALITY] ABNORMAL ECG UNCONFIRMED REPORT Electronically signed by : Chay Goins MD 06/17/2021 08:06:08
[2021-06-15 02:56] LABS: Coronavirus 19, PCR Not Detected (NotDetected); Influenza A, PCR Not Detected (NotDetected); Influenza B, PCR Not Detected (NotDetected)
--- NOTE | 2021-06-15 03:11 | XR_ITS ---
PROCEDURE INFORMATION: Exam: XR Chest Exam date and time: 06/15/2021 3:19 AM Age: 50 years old Clinical indication: Shortness of breath TECHNIQUE: Imaging protocol: XR of the chest. Views: 1 view. COMPARISON: CR XR CHEST 2V 05/06/2021 10:24 AM FINDINGS: Lungs: There is poorly defined patchy consolidation throughout both lower lungs, left greater than right, consistent with pneumonia. The upper lungs are clear. Pleural spaces: Unremarkable. No pleural effusion. No pneumothorax. Heart/Mediastinum: Unremarkable. No cardiomegaly. Bones/joints: Unremarkable. IMPRESSION: Bilateral pneumonia, left greater than right.
--- NOTE | 2021-06-15 03:21 | PC.NURSE ---
pt getting xrays
[2021-06-15 03:28] LABS: Basophils # 0.1 K/mm3 (0-0.2); Eosinophils % 0.1 % (0.1-12.0); Hematocrit 30.1 % (37.0-47.0); Hemoglobin 10.1 g/dL (12.2-16.2); Lymphocytes # 0.5 K/mm3 (0.7-4.5); Lymphocytes % 5.4 % (10-50); Mean Corpuscular HGB Conc 33.4 g/dL (31.8-35.4); Mean Corpuscular Hemoglobin 32.7 pg (27.0-31.2); Mean Corpuscular Volume 97.9 fl (81-99); Mean Platelet Volume 8.9 fl (7.4-10.4); Monocytes # 0.3 K/mm3 (0.1-1.0); Monocytes % 3.8 % (1.7-9.3); Neutrophils % 89.9 % (37.0-80.0); Platelet Count 158 K/mm3 (142-424); Red Blood Count 3.08 M/mm3 (4.20-5.40); Red Cell Distribution Width 15.5 % (11.5-17.5); White Blood Count 8.9 K/mm3 (4.8-10.8)
[2021-06-15 03:42] LABS: Alanine Aminotransferase 62 U/L (12-78); Albumin Level 3.5 g/dl (3.5-5.0); Albumin/Globulin Ratio 0.8 (1.1-1.8); Alkaline Phosphatase 260 U/L (38-126); Anion Gap 14.9 mEq/L (5-15); Aspartate Amino Transferase 82 U/L (14-36); Blood Urea Nitrogen 54 mg/dl (7-17); Calcium 9.2 mg/dl (8.4-10.2); Carbon Dioxide 27 mmol/L (22.0-30.0); Chloride 93 mmol/L (98-107); Creatinine Clearance Estimated 32 mL/min (50-200); Estimated Glomerular Filt Rate 37 ml/min (>60); GFR (African American) 45 ML/MIN (>60); Globulin 4.2 g/dL (1.3-3.2); Glucose 129 mg/dl (74-100); Potassium 3.9 mmoL/L (3.5-5.1); Sodium 131 mmol/L (136-145); Total Protein,Serum 7.7 g/dl (6.3-8.2)
[2021-06-15 03:43] LABS: Lactic Acid 1.8 mmol/L (0.7-2.1); MANUAL DIFFERENTIAL MANUAL DIFFERENTIAL (MANUAL DIFF)
[2021-06-15 03:45] LABS: Magnesium 1.9 mg/dl (1.6-2.3)
[2021-06-15 04:01] LABS: C-Reactive Protein 335.3 mg/L (0-4); Erythrocyte Sedimentation Rate > 140 mm/hr (0-20); Procalcitonin 1.16 ng/mL (0.0-2.0)
[2021-06-15 04:02] LABS: Troponin I < 0.01 ng/ml (0.00-0.034)
[2021-06-15 04:36] LABS: Lymphocytes % 10 % (10-50); Macrocytosis 1+; Monocytes % 1 % (2-9); Neutrophils % 89 % (42-76); Platelet Estimate Normal; Total Cells Counted 100
--- NOTE | 2021-06-15 04:48 | HMH.EDSOB ---
ED Disposition Clinical Impression: Acute exacerbation of chronic obstructive airways disease, SIRS (systemic inflammatory response syndrome), Tobacco use, Low body mass index (BMI) Community acquired pneumonia Qualifiers: Laterality: unspecified laterality Qualified Code(s): J18.9 - Pneumonia, unspecified organism Disposition: Admitted As Inpatient Condition on Discharge: Fair Referrals: Chay Justin MD [Primary Care Provider] - - Critical Care Critical Care Time: No Attestation: On 06/15/21, the high probability of a clinically significant, sudden or life threatening deterioration of the following system(s) required my full and direct attention, intervention and personal management. The time I documented below is in addition to time spent performing reported procedures but includes the following listed in this critical care notation. Medical Decision Making - Medical Records Medical records reviewed: Yes: I reviewed the patient's medical records. - Bobby Inquiry Pt receiving controlled substance: No Vital Signs: 06/15/21 03:05 06/15/21 03:30 06/15/21 03:56 Temperature 97.8 F Temperature Source Oral Pulse Rate 93 H 96 H Pulse Rate [Apical] 107 H Respiratory Rate 18 Blood Pressure 89/55 L 104/68 L Blood Pressure [Right Arm] 99/64 L Blood Pressure Mean [Right Arm] 75 Blood Pressure Source [Right Arm] Automatic Cuff Blood Pressure Position [Right Arm] Sitting 02 Sat by Pulse Oximetry 88 L 92 L 85 L Oxygen Delivery Method Nasal Cannula Nasal Cannula Nasal Cannula Oxygen Flow Rate (LPM) 2 4 4 - Lab Data Lab results reviewed: Yes: I reviewed the patient's lab results. Lab Results 06/15/21 02:49: SARS-CoV-2 (PCR) Not detected, Influenza A Untype (PCR) Not detected, Influenza Type B (PCR) Not detected 06/15/21 03:00: WBC 8.9, RBC 3.08 L, Hgb 10.1 L, Hct 30.1 L, MCV 97.9, MCH 32.7 H, MCHC 33.4, RDW 15.5, Plt Count 158, MPV 8.9, Neut % (Auto) 89.9 H, Lymph % (Auto) 5.4 L, [place]mer[place]da % (Auto) 3.8, Eos % (Auto) 0.1, Baso % (Auto) 1.0, Neut # (Auto) 8.0 H, Lymph # (Auto) 0.5 L, [place]mer[place]da # (Auto) 0.3, Eos # (Auto) 0.0, Baso # (Auto) 0.1, Total Counted 100, Neutrophils % (Manual) 89 H, Lymphocytes % (Manual) 10, Monocytes % (Manual) 1 L, Platelet Estimate Normal, RBC Morphology Not Reportable, Macrocytosis 1+, ESR > 140 H 06/15/21 03:00: Sodium 131 L, Potassium 3.9, Chloride 93 L, Carbon Dioxide 27, Anion Gap 14.9, BUN 54 H, Creatinine 1.50 H, Estimated Creat Clear 32, Estimated GFR 37 L, Est GFR ( Amer) 45 L, Glucose 129 H, Calcium 9.2, Total Bilirubin 1.0, AST 82 H, ALT 62, Alkaline Phosphatase 260 H, C-Reactive Protein 335.3 H, Total Protein 7.7, Albumin 3.5, Globulin 4.2 H, Albumin/Globulin Ratio 0.8 L 06/15/21 03:00: Troponin I < 0.01, Procalcitonin 1.16 06/15/21 03:00: Lactate 1.8 06/15/21 03:00: Magnesium 1.9 Result diagrams: 06/15/21 03:00 06/15/21 03:00 Orders (Tests/Meds): ED MEDICATIONS Generic Name Dose Route Start Last Admin Trade Name Freq PRN Reason Stop Dose Admin Ceftriaxone Sodium 1 gm/ 50 mls @ 100 mls/hr 06/15/21 05:45 06/15/21 05:36 Sodium Chloride IV 06/29/21 05:44 100 mls/hr Q24H JOHNSON Administration Azithromycin 500 mg/ Sodium 250 mls @ 250 mls/hr 06/15/21 05:45 06/15/21 05:36 Chloride IV 06/29/21 05:44 250 mls/hr Q24H JOHNSON Administration Discontinued Medications Generic Name Dose Route Start Last Admin Trade Name Freq PRN Reason Stop Dose Admin Lactated Ringer's 1,000 mls @ 999 mls/hr 06/15/21 03:30 06/15/21 03:19 Lactated Ringer's 1000 Ml Bag IV 06/15/21 04:30 999 mls/hr .Q1H1M JOHNSON Administration Methylprednisolone Sodium Succinate 125 mg 06/15/21 03:50 06/15/21 03:50 Methylprednisolone Sod Succ 125mg Vial IV 06/15/21 03:51 125 mg ONCE ONE Administration ORDERS Category Date Time Status Troponin I Q3H Lab 06/15/21 06:30 Ordered Troponin I Q3H Lab 06/15/21 09:30 Ordered Blood Culture Stat Micro 0
--- NOTE | 2021-06-15 05:10 | CT_ITS ---
PROCEDURE INFORMATION: Exam: CT Chest Without Contrast; Diagnostic Exam date and time: 06/15/2021 5:15 AM Age: 50 years old Clinical indication: Shortness of breath; Additional info: SOA, lung CA, recent pneumothorax TECHNIQUE: Imaging protocol: Diagnostic computed tomography of the chest without contrast. Radiation optimization: All CT scans at this facility use at least one of these dose optimization techniques: automated exposure control; mA and/or kV adjustment per patient size (includes targeted exams where dose is matched to clinical indication); or iterative reconstruction. COMPARISON: CT ANGIO CHEST PE PROTOCOL 05/02/2021 8:29 PM FINDINGS: Lungs: There are poorly defined pneumonia infiltrates throughout both lower lungs with more dense consolidation at the lung bases. Pleural spaces: Unremarkable. No pneumothorax. No pleural effusion. No coronary artery calcification. Heart: Unremarkable. No cardiomegaly. No pericardial effusion. Lymph nodes: Unremarkable. No enlarged lymph nodes. Aorta: Unremarkable. No aortic aneurysm. Gallbladder and bile ducts: The patient has had a cholecystectomy. Bones/joints: Unremarkable. No acute fracture. Soft tissues: Unremarkable. IMPRESSION: Bilateral pneumonia, left greater than right, as was already diagnosed from the earlier chest x-ray.
--- NOTE | 2021-06-15 05:50 | PC.NURSE ---
paged Dr. Toledo
--- NOTE | 2021-06-15 06:21 | PC.NURSE ---
Dr. Tloedo paged again
--- NOTE | 2021-06-15 06:22 | PC.NURSE ---
Dr. Marin speaking to Dr. Toledo
--- NOTE | 2021-06-15 06:27 | PC.NURSE ---
Notified household appliances salesperson of pt admission and need for bed assignment
--- NOTE | 2021-06-15 06:41 | PC.NURSE ---
Attempted to call report. Unsure of which nurse will be accepting patient.
--- NOTE | 2021-06-15 07:31 | HMH.PHAINT ---
Home medication list has been verified using the patient's [employer] claim history.
--- NOTE | 2021-06-15 07:58 | PC.NURSE ---
called report to soto zhou.
[2021-06-15 09:21] LABS: Adenovirus F 40/41, stool Not Detected (NotDetected); Astrovirus Not Detected (NotDetected); Campylobacter Not Detected (NotDetected); Clostridium Difficile A/B, PCR Not Detected (NotDetected); Cryptosporidium Not Detected (NotDetected); Cyclospora Cayetanesis Not Detected (NotDetected); Entamoeba histolytica Not Detected (NotDetected); Enteroaggregative E coli Not Detected (NotDetected); Enteropathogenic E coli Not Detected (NotDetected); Enterotoxigenic E coli Not Detected (NotDetected); Giardia lamblia Not Detected (NotDetected); Norovirus Not Detected (NotDetected); Plesimonas Shigalloides, PCR Not Detected (NotDetected); Rotavirus A Not Detected (NotDetected); Salmonella, PCR Not Detected (NotDetected); Sapovirus Not Detected (NotDetected); Shiga-like toxin E coli Not Detected (NotDetected); Shigella Enterovasive E coli Not Detected (NotDetected); Vibrio Cholerae Not Detected (NotDetected); Vibrio, PCR Not Detected (NotDetected); Yersinia Entercolitica, PCR Not Detected (NotDetected)
--- NOTE | 2021-06-15 10:22 | HMH.HP ---
*Admission Date: 06/15/21 <Pascale Hillman 06/15/21 11:03> *Chief complaint: Altered mental status with cough and shortness of breath. <Pascale Hillman 06/15/21 11:03> *History of present illness: Ms. Jackson is a 50-year-old female with a history of metastatic cervical carcinoma with lung mets, COPD, tobacco use disorder, and renal disease with bilateral stents who presented to [facility] emergency room for evaluation after progressive shortness of breath with cough and altered mental status. She also describes some left upper chest pain as sharp and stabbing. She has been unable to take a deep breath. She has recently started chemotherapy with her first treatment 3 weeks ago. She is scheduled for another treatment this Monday. He is currently being treated at the cancer center at [facility]. She was last hospitalized at [facility] on 05/04/2021 with a pneumothorax after a biopsy. At the time of this exam daughter is at bedside and is the major historian. She was diagnosed with cervical cancer about a year ago. She has had renal failure and has had to have stents placed. The daughter is in the process of having all of her care transferred to the cancer center at [facility] in [facility]. This is where she is receiving her IV chemo now. She has had pneumonia previously and she continues to smoke. Patient is lethargic she does awaken easily but then immediately continues to sleep. Nurses states that upon arrival to the floor she was alert talkative. O2 sats were low and she is now on oxygen at 5 L per nasal cannula. <KadyPascale 06/15/21 11:18> [facility] History Medical History: Reports:: Cancer (Metastatic cervical cancer), Chronic Obstructive Pulmonary Disease (COPD), Renal Disease Denies:: Diabetes Mellitus Type 1, Diabetes Mellitus Type 2 <Pascale Hillman 06/15/21 11:18> *Have you ever received a pneumonia vaccine?: No <Pascale Hillman 06/15/21 10:53> *Have you received a flu vaccine this season?: No <Pascale Hillman 06/15/21 10:53> Other Medical History: Reports: Chemotherapy, Radiation Therapy <Pascale Hillman 06/15/21 11:18> Other Surgeries: Yes: Cholecystectomy, (x1), Ureter Stent <KadyPascale 06/15/21 10:53> Amputation: No <KadyPascale 06/15/21 10:53> Fractures: No <KadyPascale 06/15/21 10:53> - *Social History Smoking Status: Current every day smoker <KadyPascale 06/15/21 10:53> Tobacco Type: cigarettes, e-cigarettes <KadyPascale 06/15/21 10:53> # Packs/Day (cigarettes): 1 <KadyPascale 06/15/21 10:53> Alcohol Intake: never <KadyPascale 06/15/21 10:53> Substance Use Type: marijuana <KadyPascale 06/15/21 10:53> *Occupational Status:: unemployed <KadyPascale 06/15/21 10:53> Housing: house <KadyPascale 06/15/21 10:53> Household Members: children <HillmanPascale 06/15/21 10:53> *Travel in the last 8 weeks: None <HillmanPascale 06/15/21 11:18> Family Hx:: Cancer, Coronary Artery Disease, Diabetes, Heart Attack, Hyperlipidemia, Hypertension, Other <HillmanPascale 06/15/21 10:53> Review of Systems - Constitutional Reports weight loss (Recently placed on Remeron), Denies fever(s) <HillmanPascale 06/15/21 11:18> - Eyes Reports change in vision <KadyPascale 06/15/21 11:18> - ENT Denies ear pain, Denies sore throat <HillmanPascale 06/15/21 11:18> - *Cardiovascular Denies chest pain, Denies shortness of breath, Denies generalized swelling, Denies leg swelling <Hillman,Pascale 06/15/21 11:18> - *Respiratory Reports chest congestion, Reports cough, Reports shortness of breath, Denies coughing up blood <Hillman,Pascale 06/15/21 11:18> - *Gastrointestinal Reports abdominal pain, Denies loose stools, Denies nausea, Denies vomiting <KadyPascale 06/15/21 11:18> - *Genitourinary Reports difficulty urinating <Pascale Hillman - 06/15/21 11:18> - *Musculoskeletal Reports abnormal walking, Reports mus
[2021-06-15 12:58] LABS: ABG Base Excess -0.7 mmol/L (-2.4-2.3); ABG HCO3 23.5 mmhg (22.0-26.0); ABG Oxygen Saturation 96 % (90-100); ABG PCO2 35.5 mmhg (35.0-45.0); ABG PH 7.44 mmol/L (7.35-7.45); ABG PO2 80.6 mmhg (80-100); ABG TCO2 24.6 mmhg (23-27)
[2021-06-15 13:01] LABS: Allen's Test Acceptable; Oxygen 5L %; Source Left Radial
[2021-06-16] VITALS (19 sets, daily range): BP systolic 130–165; BP diastolic 64–92; PULSE 88–101; RESP 14–19; TEMP 36.1–36.8; O2SAT 88–96; BMI 19.1
--- NOTE | 2021-06-16 06:36 | PC.NURSE ---
pt reported pain in her bladder area last night. pain medicaiton effective. Pt continues to have a weak non productive cough. Encouraged tcdb and pulm toilet exercises. Pt stated that she wanted to quit smoking ans asked for nicotine patch. Adama Rosa called and patch ordered. PT thankful
[2021-06-16 07:27] LABS: Basophils % 0.3 % (0.1-2.0); Eosinophils % 0.2 % (0.1-12.0); Hematocrit 24.6 % (37.0-47.0); Hemoglobin 7.9 g/dL (12.2-16.2); Lymphocytes # 0.3 K/mm3 (0.7-4.5); Lymphocytes % 7.5 % (10-50); Mean Corpuscular HGB Conc 32.1 g/dL (31.8-35.4); Mean Corpuscular Volume 96.5 fl (81-99); Mean Platelet Volume 8.5 fl (7.4-10.4); Monocytes # 0.1 K/mm3 (0.1-1.0); Monocytes % 2.9 % (1.7-9.3); Neutrophils % 89.2 % (37.0-80.0); Platelet Count 137 K/mm3 (142-424); Red Blood Count 2.55 M/mm3 (4.20-5.40); Red Cell Distribution Width 14.6 % (11.5-17.5); White Blood Count 4.4 K/mm3 (4.8-10.8)
[2021-06-16 07:32] LABS: MANUAL DIFFERENTIAL MANUAL DIFFERENTIAL (MANUAL DIFF)
[2021-06-16 07:43] LABS: Chloride 103 mmol/L (98-107); Potassium 3.7 mmoL/L (3.5-5.1); Sodium 132 mmol/L (136-145)
[2021-06-16 07:46] LABS: Anion Gap 8.7 mEq/L (5-15); Blood Urea Nitrogen 40 mg/dl (7-17); Carbon Dioxide 24 mmol/L (22.0-30.0); Creatinine Clearance Estimated 46 mL/min (50-200); Estimated Glomerular Filt Rate 53 ml/min (>60); GFR (African American) 64 ML/MIN (>60)
[2021-06-16 07:47] LABS: Glucose 215 mg/dl (74-100); Magnesium 1.8 mg/dl (1.6-2.3)
--- NOTE | 2021-06-16 08:33 | HMH.PHAVTE ---
[facility] Pharmacy VTE Monitoring - Patient Demographics Admission date: 06/15/21 Report Date: 06/16/21 Time: 08:33 Allergies/Adverse Reactions: Patient Allergies No Known Allergies Allergy (Verified 07/13/19 03:38) Height: 1.57 m Weight: 47.038 kg Patient Problems: Current Active Problems Chronic pelvic pain in female (Chronic) Community acquired pneumonia (Acute) Acute exacerbation of chronic obstructive airways disease (Acute) SIRS (systemic inflammatory response syndrome) (Acute) Tobacco use (Chronic) Low body mass index (BMI) (Acute) Altered mental status (Acute) Acute respiratory failure with hypoxia (Acute) Primary cervical cancer with metastasis to other site (Chronic) Metastasis to lung (Chronic) - VTE Risk Labs: VTE Related Lab Results Hgb 7.9 g/dL (12.2-16.2) L 06/16/21 07:06 Hct 24.6 % (37.0-47.0) L 06/16/21 07:06 Plt Count 137 K/mm3 (142-424) L 06/16/21 07:06 BUN 40 mg/dl (7-17) H D 06/16/21 07:06 Creatinine 1.10 mg/dl (0.52-1.04) H D 06/16/21 07:06 Estimated Creat Clear 46 mL/min (50-200) 06/16/21 07:06 - Prophylaxis VTE Prophylaxis Ordered?: Yes Types of VTE Prophylaxis: TEDS Knee High Location of Applied Device: Bilateral Lower Extremeties
--- NOTE | 2021-06-16 08:47 | HMH.ACPN2 ---
<Pascale Hillman - Last Filed: 06/16/21 08:47> Internal Medicine - PN: Subj *Date: 06/16/21 *Time: 08:47 Interval history: Patient states she feels much better today. She is able to drink and eat a little. She continues with pelvic pain. She has been up to the bathroom.O2 sats have been 90-92 on O2 and 88 on room air Laboratory data this morning shows a hemoglobin of 7.9 with hematocrit of 24.6. White count is 4400. Platelet count is 137,000. Blood chemistries with a sodium of 132 potassium of 3.7. BUN is 40 and creatinine has improved to 1.10. Exam Vital signs and Labs for Last 24 Hours: Temp Pulse Resp BP Pulse Ox 97.3 F L 98 H 18 131/85 88 L 06/16/21 08:00 06/16/21 08:00 06/16/21 08:00 06/16/21 08:00 06/16/21 08:40 Laboratory Results - last 24 hr 06/15/21 03:47: Stl Aeromonas (PCR) Not detected, Stl C. cayetanensis PCR Not detected, Stool Rotavirus (PCR) Not detected, Stl Adenov F 40/41 PCR Not detected, Stool Astrovirus (PCR) Not detected, Stool Campylobacter PCR Not detected, Stl C.difficile Tox PCR Not detected, Stool Cryptosporidium PCR Not detected, Stl E.coli Shiga Tox PCR Not detected, Stool E coli O157 PCR Not detected, Stl Enterotoxigenic E PCR Not detected, Stool EPEC (PCR) Not detected, Stool EAEC (PCR) Not detected, Stl E. histolytica PCR Not detected, Stool Giardia Lamblia PCR Not detected, Stool Salmonella PCR Not detected, Stool Sapovirus (PCR) Not detected, Stl P. shigelloides PCR Not detected, Stl Shigella/EIEC PCR Not detected, St Y.enterocolitica PCR Not detected, Stool Vibrio (PCR) Not detected, Stl Vibrio cholerae PCR Not detected, Stl Norovirus GI/GII PCR Not detected 06/15/21 11:16: Specimen Source Left radial, O2 % 5l, ABG pH 7.44, ABG pCO2 35.5, ABG pO2 80.6, ABG HCO3 23.5, ABG Total CO2 24.6, ABG O2 Saturation 96, ABG Base Excess -0.7, Master Test Acceptable 06/16/21 07:06: WBC 4.4 L D, RBC 2.55 L, Hgb 7.9 L, Hct 24.6 L, MCV 96.5, MCH 31.0, MCHC 32.1, RDW 14.6, Plt Count 137 L, MPV 8.5, Neut % (Auto) 89.2 H, Lymph % (Auto) 7.5 L, [place] % (Auto) 2.9, Eos % (Auto) 0.2, Baso % (Auto) 0.3, Neut # (Auto) 4.0, Lymph # (Auto) 0.3 L, [place] # (Auto) 0.1, Eos # (Auto) 0.0, Baso # (Auto) 0.0 06/16/21 07:06: Sodium 132 L, Potassium 3.7, Chloride 103, Carbon Dioxide 24, Anion Gap 8.7, BUN 40 H D, Creatinine 1.10 H D, Estimated Creat Clear 46, Estimated GFR 53 L, Est GFR ( Amer) 64 D, Glucose 215 H, Calcium 9.0, Magnesium 1.8 I & O for Last 24 hours: Intake & Output 06/13/21 06/14/21 06/15/21 06/16/21 11:59 11:59 11:59 11:59 Intake Total 300 / 300 Balance 300 / 300 Weight 98 lb 103 lb 11.2 oz - Constitutional no acute distress - *Routine Respiratory Exam Present: rhonchi (Bilateral), crackles (Bilateral) - *Routine Cardiovascular Exam Present: RRR - *Routine Abdominal Exam Present: soft, normoactive bowel sounds, tenderness (Pelvic region) - *Routine Extremities Exam Present: PANCHITO stockings. Absent: edema - *Routine Neurological Exam Present: alert, oriented X3 Assessment and Plan (1) Community acquired pneumonia Status: Acute Qualifiers: Laterality: unspecified laterality Qualified Code(s): J18.9 - Pneumonia, unspecified organism Category: Medical Code(s): J18.9 - Pneumonia, unspecified organism (2) Altered mental status Status: Acute Category: Medical Code(s): R41.82 - Altered mental status, unspecified (3) Acute respiratory failure with hypoxia Status: Acute Category: Medical Code(s): J96.01 - Acute respiratory failure with hypoxia (4) Acute exacerbation of chronic obstructive airways disease Status: Acute Category: Medical Code(s): J44.1 - Chronic obstructive pulmonary disease with (acute) exacerbation (5) Chronic pelvic pain in female Status: Chronic Category: Medical Code(s): R10.2 - Pelvic and perineal pain; G89.29 - Other chronic pain (6) Tobacco use Status: Chronic Category: Social Hx Code(s): Z72.0 - Tob
[2021-06-16 09:54] LABS: Lymphocytes % 2 % (10-50); Monocytes % 1 % (2-9); Neutrophils % 97 % (42-76); Platelet Estimate Normal; RBC Morphology Normal; Total Cells Counted 100
--- NOTE | 2021-06-16 16:28 | PC.NURSE ---
Patient complained of chronic back pain, oxycodone given and pain relief noted. patient weaned to room air and tolerating iv steroid well. Patient receiving one unit of blood with no complaints or reactions noted. VS stable.
[2021-06-17 03:33] LABS: Hematocrit 24.2 % (37.0-47.0); Hemoglobin 8.1 g/dL (12.2-16.2)
[2021-06-17 04:00] VITALS: BP 146/99; PULSE 83; RESP 17; TEMP 36.4; O2SAT 92
[2021-06-17 05:00] VITALS: BMI 20.1
[2021-06-17 06:30] VITALS: PULSE 88; PULSE 90; O2SAT 91
--- NOTE | 2021-06-17 06:39 | PC.NURSE ---
Pt reported that she needed something for break through pain. Pt stated that the oxy was working but only for about 4 hrs and something more was needed. Dr. Matthew was called and new order for diladid given. Pt was given the medication and stated that it worked great. Pt was at first fearful of addiction and was educated. Voiced asurance and agreed to take the medication. Pt reduced her 02 use and was able to be on RA for several hours. Her sats remained above 90% at rest. Pt is aware of when to wear the 02 and when she was low.
[2021-06-17 08:00] VITALS: BP 144/92; PULSE 89; RESP 18; TEMP 36.4; O2SAT 92
--- NOTE | 2021-06-17 08:50 | HMH.ACPN2 ---
<Jennifer Bond - Last Filed: 06/17/21 08:50> Internal Medicine - PN: Subj *Date: 06/17/21 *Time: 08:50 Interval history: The patient states she continues with her normal abdominal pain but her breathing has significantly improved. She has had her oxygen off this morning with sats of 93% on room air. She does feel the nebulizer treatments are really helping. She has been up going to the bathroom all night due to her IV fluids. She would like those turned off today and she wants to go home. Exam Vital signs and Labs for Last 24 Hours: Temp Pulse Resp BP Pulse Ox 97.6 F 88 17 146/99 H 91 L 06/17/21 04:00 06/17/21 06:30 06/17/21 04:00 06/17/21 04:00 06/17/21 06:30 Laboratory Results - last 24 hr 06/16/21 07:06: Total Counted 100, Neutrophils % (Manual) 97 H, Lymphocytes % (Manual) 2 L, Monocytes % (Manual) 1 L, Platelet Estimate Normal, RBC Morphology Normal 06/16/21 09:00: Blood Type O Positive, Antibody Screen Negative, Crossmatch (AHG) See Detail 06/16/21 10:40: Blood Type Confirm O Positive 06/16/21 18:30: Hgb 8.1 L, Hct 24.2 L I & O for Last 24 hours: Intake & Output 06/14/21 06/15/21 06/16/21 06/17/21 11:59 11:59 11:59 11:59 Intake Total 300 / 300 850 / 850 Balance 300 / 300 850 / 850 Weight 98 lb 103 lb 11.2 oz 109 lb 4.8 oz Microbiology Reports for the Last 24 Hours: Microbiology 06/15/21 05:12 Blood Blood Culture - Preliminary NO GROWTH AFTER 48 HOURS 06/15/21 05:12 Blood Blood Culture - Preliminary NO GROWTH AFTER 48 HOURS - Constitutional no acute distress - *Routine Respiratory Exam Present: wheezes - *Routine Cardiovascular Exam Present: RRR - *Routine Abdominal Exam Present: soft, normoactive bowel sounds, tenderness (In the lower abdomen) - *Routine Extremities Exam Absent: cyanosis, clubbing, edema - *Routine Skin Exam Present: warm. Absent: rash - *Routine Neurological Exam Present: alert, oriented X3 Assessment and Plan (1) Community acquired pneumonia Status: Acute Qualifiers: Laterality: unspecified laterality Qualified Code(s): J18.9 - Pneumonia, unspecified organism Category: Medical Code(s): J18.9 - Pneumonia, unspecified organism (2) Altered mental status Status: Acute Category: Medical Code(s): R41.82 - Altered mental status, unspecified (3) Acute respiratory failure with hypoxia Status: Acute Category: Medical Code(s): J96.01 - Acute respiratory failure with hypoxia (4) Acute exacerbation of chronic obstructive airways disease Status: Acute Category: Medical Code(s): J44.1 - Chronic obstructive pulmonary disease with (acute) exacerbation (5) Chronic pelvic pain in female Status: Chronic Category: Medical Code(s): R10.2 - Pelvic and perineal pain; G89.29 - Other chronic pain (6) Tobacco use Status: Chronic Category: Social Hx Code(s): Z72.0 - Tobacco use (7) Primary cervical cancer with metastasis to other site Status: Chronic Category: Medical Code(s): C53.9 - Malignant neoplasm of cervix uteri, unspecified (8) Metastasis to lung Status: Chronic Category: Medical Code(s): C78.00 - Secondary malignant neoplasm of unspecified lung - Assessment and plan all Dx Assessment and Plan for all problems:: Blood cultures have shown no growth. Patient was saline locked this morning and had satisfactory room air oxygen saturations. She can possibly be discharged home today, but will need a nebulizer. Will discuss with Dr. Toledo. <Moises Toledo - Last Filed: 06/17/21 09:09> Internal Medicine - PN: Subj *Date: 06/17/21 *Time: 09:07 Exam Vital signs and Labs for Last 24 Hours: Temp Pulse Resp BP Pulse Ox 97.6 F 88 17 146/99 H 91 L 06/17/21 04:00 06/17/21 06:30 06/17/21 04:00 06/17/21 04:00 06/17/21 06:30 Laboratory Results - last 24 hr 06/16/21 07:06: Total Counted 100, Neutrop
--- NOTE | 2021-06-17 09:40 | HMH.PHAINT ---
I spoke with the patient today about their medication list. Went over the new medications being sent in for the patient and the medications she was to continue on at home. When we spoke, the patient did not have any questions or concerns. The patient was provided a copy of the medication list and was informed on where she could picker the medications at.
--- NOTE | 2021-06-17 09:41 | PC.NURSE ---
Spoke with care management and they will get a nebulizer delivered to pt home. Stated that she doesn't need to hold up D/C for nebulizer.
--- NOTE | 2021-06-17 11:43 | PC.NURSE ---
Spoke with kellee from Dr. Toledo's office asked if she needed a nebulizer to be sent home. Waiting on contact back, and then will notify care management.
--- NOTE | 2021-06-17 12:59 | HMH.DCSUM ---
General - General Admission date:: 06/15/21 Discharge date: 06/17/21 HPI HPI: Ms. Jackson is a 50-year-old female with a history of metastatic cervical carcinoma with lung mets, COPD, tobacco use disorder, and renal disease with bilateral stents who presented to [facility] emergency room for evaluation after progressive shortness of breath with cough and altered mental status. She also describes some left upper chest pain as sharp and stabbing. She has been unable to take a deep breath. She has recently started chemotherapy with her first treatment 3 weeks ago. She is scheduled for another treatment this Monday. He is currently being treated at the cancer center at [facility]. She was last hospitalized at [facility] on 05/04/2021 with a pneumothorax after a biopsy. At the time of this exam daughter is at bedside and is the major historian. She was diagnosed with cervical cancer about a year ago. She has had renal failure and has had to have stents placed. The daughter is in the process of having all of her care transferred to the cancer center at [facility] in [facility]. This is where she is receiving her IV chemo now. She has had pneumonia previously and she continues to smoke. Patient is lethargic she does awaken easily but then immediately continues to sleep. Nurses states that upon arrival to the floor she was alert talkative. O2 sats were low and she is now on oxygen at 5 L per nasal cannula. Hospital Course Hospital Course: The patient was started on pain management and ABGs were ordered to assess her pulmonary status. She was started on pneumonia protocol as her chest CT showed bilateral pneumonia. She did begin feeling better and was able to drink and eat a small amount. She was continued on IV fluids. Her H&H decreased and she was given 1 unit of packed red blood cells. Her H&H improved slightly. By 06/17/2021 she continued with her normal abdominal pain, but her breathing had significantly improved. She had her oxygen off all morning with sats of 93% on room air. She felt the nebulizer treatments were helping her and she was able to get up and go to the bathroom on her own. She was also able to eat more food. She wanted to go home. Her blood culture showed no growth and she was stable to be discharged. Dr. Hatch will be seeing the patient shortly in his office after discharge and she will also follow-up with oncology. Objective Vital signs: Temp Pulse Resp BP Pulse Ox 97.5 F L 89 18 144/92 H 92 L 06/17/21 08:00 06/17/21 08:00 06/17/21 08:00 06/17/21 08:00 06/17/21 08:00 Narrative: - Constitutional no acute distress, cachectic, chronically ill appearing <[facility] 06/15/21 11:18> - *Routine HEENT Exam Head: Present: normocephalic, atraumatic <[facility] 06/15/21 11:18> Eye: Present: PERRL. Absent: conjunctival icterus, scleral injection <[facility] 06/15/21 11:18> ENT: Present: mucous membranes dry, oropharynx clear <[facility] 06/15/21 11:18> - *Routine Neck Exam Present: supple. Absent: carotid bruit, lymphadenopathy, thyromegaly <[facility] 06/15/21 11:18> - *Routine Respiratory Exam Present: wheezes, crackles (Posteriorly greater on the right) <[facility] 06/15/21 11:18> - *Routine Cardiovascular Exam Present: RRR <[facility] 06/15/21 11:18> - *Routine Abdominal Exam Present: tenderness (Pelvic region) <[facility] 06/15/21 11:18> - *Routine Rectal Exam Rectal:: deferred <[facility] 06/15/21 11:18> - *Routine Genitalia Exam Genitalia:: deferred <[facility] 06/15/21 11:18> - *Routine Extremities Exam Absent: edema, calf tenderness <[facility] 06/15/21 11:18> - *Routine Neurological Exam Present: alert <[facility] 06/15/21 11:18> Lethargic Results Labs on day of discharge: Labs from last 24 hours 06/16/21 06/16/21 18:30 09:00 Hg
== END 2021-06-17 10:02 | disposition home or self-care (01) | DRG 193 ==
LOC: ER 06:34 → 2ND 10:52
PROVIDERS: Nurse Practitioner Family; Admitting Provider Family Medicine; Emergency Provider Emergency Medicine; PCP Family Medicine; Visit Provider Family Medicine
DX: J18.9 Pneumonia, unspecified organism (principal); J96.01 Acute respiratory failure with hypoxia; J44.1 Chronic obstructive pulmonary disease with (acute) exacerbation; J44.0 Chronic obstructive pulmonary disease with (acute) lower respiratory infection; C78.00 Secondary malignant neoplasm of unspecified lung; C53.9 Malignant neoplasm of cervix uteri, unspecified; F17.290 Nicotine dependence, other tobacco product, uncomplicated; Z20.822 Contact with and (suspected) exposure to COVID-19
CPT/HCPCS: 36415; 71045; 71250; 80048; 80053; 82803; 83605; 83735; 84145; 84484; 85007; 85014; 85018; 85025; 85651; 86140; 86850; 87040; 87507; 93005; 94640; 94760; 94761; 96375; 99285; C9803; J0456; J0696; P9016; U0003; U0005

== ENCOUNTER 2021-06-29 12:44 | Emergency (ER) | payer MEDICAID, SELFPAY ==
[2021-06-29] VITALS (10 sets, daily range): BP systolic 90–100; BP diastolic 53–66; PULSE 98–119; RESP 18; TEMP 36.7; O2SAT 92–95; BMI 16.9
--- NOTE | 2021-06-29 12:57 | PC.NURSE ---
ED MD at
--- NOTE | 2021-06-29 13:01 | CT_ITS ---
FINAL REPORT TECHNIQUE: After the administration of oral and intravenous contrast, axial images were obtained through the abdomen and pelvis by computed tomography. The study was performed with techniques to keep radiation dose as low as reasonably achievable, (ALARA). Individual dose reduction techniques using automated exposure control or adjustment of mA and/or kV according to the patient's size were employed. CLINICAL HISTORY: RLQ pain, cervical cancer w mets COMPARISON: 01/01/2021 FINDINGS: There are numerous nodules in the lung bases most worrisome for metastatic disease. The liver is normal in size and attenuation. The patient is status post cholecystectomy. There is mild biliary dilatation. The spleen is unremarkable. There is bilateral adrenal gland enlargement, favor hyperplasia. The pancreas is unremarkable. The kidneys enhance appropriately. The aorta is normal in caliber. Bilateral ureteral stents are present. There is moderate right hydronephrosis. There is abnormal fluid in the right abdomen and pelvis retroperitoneum adjacent to the iliacus and psoas muscles. Several bubbles of air are seen in the right psoas region. There is fluid in the anterior right pelvis musculature and extending into the right anterior thigh, may represent seroma or abscess. Findings are new since the previous. There is intravaginal air which may be iatrogenic. The appendix is not identified. The urinary bladder is unremarkable. There is a small amount of ascites in the pelvis. IMPRESSION: Abnormal fluid in the right abdomen and pelvis retroperitoneum as above with several bubbles of air in the right psoas region. Fluid in the anterior right pelvis musculature extending to the right anterior thigh, may represent seroma or abscess. Findings are new since previous. Numerous lung nodules most worrisome for metastatic disease. Reviewed, Interpreted and Dictated by Pako Slade III, MD Transcribed by Pascale Dang Authenticated by Pako Slade III, MD on 06/29/2021 03:56:08 PM [facility]
--- NOTE | 2021-06-29 13:01 | HMH.EDGENADL ---
ED Disposition Clinical Impression: Intra-abdominal abscess Disposition: Xfer Short-Term Hosp Condition on Discharge: Fair Referrals: Danilo Hatch MD [Primary Care Provider] - Time of Disposition: 16:57 - Critical Care Critical Care Time: No Attestation: On 06/29/21, the high probability of a clinically significant, sudden or life threatening deterioration of the following system(s) required my full and direct attention, intervention and personal management. The time I documented below is in addition to time spent performing reported procedures but includes the following listed in this critical care notation. Medical Decision Making - Medical Records Medical records reviewed: Yes: I reviewed the patient's medical records. - Bobby Inquiry Pt receiving controlled substance: No Vital Signs: 06/29/21 12:45 06/29/21 13:00 06/29/21 14:10 Temperature 98.1 F Temperature Source Oral Pulse Rate 119 H 108 H Pulse Rate [Right Radial] 117 H Respiratory Rate 18 Blood Pressure 93/61 L 100/65 L Blood Pressure [Right Arm] 95/66 L Blood Pressure Mean [Right Arm] 75 Blood Pressure Source Automatic Cuff Automatic Cuff Blood Pressure Source [Right Arm] Automatic Cuff Blood Pressure Position Sitting Sitting Blood Pressure Position [Right Arm] Sitting 02 Sat by Pulse Oximetry 94 L 94 L 95 Oxygen Delivery Method Room Air Room Air Room Air 06/29/21 15:00 06/29/21 15:30 06/29/21 16:00 Temperature Temperature Source Pulse Rate 108 H 107 H 101 H Pulse Rate [Right Radial] Respiratory Rate Blood Pressure 98/60 L 93/57 L 94/61 L Blood Pressure [Right Arm] Blood Pressure Mean [Right Arm] Blood Pressure Source Automatic Cuff Automatic Cuff Automatic Cuff Blood Pressure Source [Right Arm] Blood Pressure Position Sitting Sitting Sitting Blood Pressure Position [Right Arm] 02 Sat by Pulse Oximetry 93 L 92 L Oxygen Delivery Method Room Air Room Air 06/29/21 16:31 06/29/21 17:02 06/29/21 18:14 Temperature Temperature Source Pulse Rate 101 H 101 H 99 H Pulse Rate [Right Radial] Respiratory Rate Blood Pressure 93/57 L 97/53 L 90/55 L Blood Pressure [Right Arm] Blood Pressure Mean [Right Arm] Blood Pressure Source Automatic Cuff Automatic Cuff Blood Pressure Source [Right Arm] Blood Pressure Position Sitting Sitting Blood Pressure Position [Right Arm] 02 Sat by Pulse Oximetry 93 L 95 Oxygen Delivery Method Room Air Room Air - Lab Data Lab Results 06/29/21 13:52: WBC 7.6, RBC 3.13 L, Hgb 9.5 L, Hct 29.8 L, MCV 95.2, MCH 30.4, MCHC 32.0, RDW 16.2, Plt Count 370, MPV 8.8, Neut % (Auto) 92.6 H, Lymph % (Auto) 3.1 L, Snyder % (Auto) 3.6, Eos % (Auto) 0.1, Baso % (Auto) 0.6, Neut # (Auto) 7.0, Lymph # (Auto) 0.2 L, Snyder # (Auto) 0.3, Eos # (Auto) 0.0, Baso # (Auto) 0.0, Total Counted 100, Neutrophils % (Manual) 90 H, Band Neutrophils % 4.0, Lymphocytes % (Manual) 4 L, Monocytes % (Manual) 2, Platelet Estimate Normal, Sintia Cells 1+ 06/29/21 13:52: Sodium 128 L, Potassium 4.4, Chloride 92 L, Carbon Dioxide 27, Anion Gap 13.4, BUN 49 H, Creatinine 1.60 H, Estimated Creat Clear 28, Estimated GFR 34 L, Est GFR ( Amer) 41 L, Glucose 119 H, Calcium 9.5, Total Bilirubin 0.6, AST 55 H, ALT 35, Alkaline Phosphatase 187 H, Total Protein 6.9, Albumin 3.0 L, Globulin 3.9 H, Albumin/Globulin Ratio 0.8 L 06/29/21 18:28: SARS-CoV-2 (PCR) Not detected, Influenza A Untype (PCR) Not detected, Influenza Type B (PCR) Not detected Result diagrams: 06/29/21 13:52 06/29/21 13:52 Orders (Tests/Meds): ED MEDICATIONS Generic Name Dose Route Start Last Admin Trade Name Freq PRN Reason Stop Dose Admin Sodium Chloride 500 mls @ 150 mls/hr 06/29/21 13:15 06/29/21 13:38 Sod Chloride 0.9% 500ml Bag IV 07/29/21 13:14 150 mls/hr .[id number] JOHNSON Administration Piperacillin Sod/Tazobactam 50 mls @ 100 mls/hr 06/29/21 16:30 06/29/21 16:30 Sod 3.375 gm/ Sodium Chloride
[2021-06-29 14:13] LABS: Chloride 92 mmol/L (98-107)
[2021-06-29 14:14] LABS: Potassium 4.4 mmoL/L (3.5-5.1); Sodium 128 mmol/L (136-145)
[2021-06-29 14:16] LABS: Alanine Aminotransferase 35 U/L (12-78); Alkaline Phosphatase 187 U/L (38-126); Aspartate Amino Transferase 55 U/L (14-36); Bilirubin,Total 0.6 mg/dl (0.2-1.3); Blood Urea Nitrogen 49 mg/dl (7-17); Creatinine Clearance Estimated 28 mL/min (50-200); Estimated Glomerular Filt Rate 34 ml/min (>60); GFR (African American) 41 ML/MIN (>60)
[2021-06-29 14:17] LABS: Albumin/Globulin Ratio 0.8 (1.1-1.8); Anion Gap 13.4 mEq/L (5-15); Basophils % 0.6 % (0.1-2.0); Calcium 9.5 mg/dl (8.4-10.2); Carbon Dioxide 27 mmol/L (22.0-30.0); Eosinophils % 0.1 % (0.1-12.0); Globulin 3.9 g/dL (1.3-3.2); Glucose 119 mg/dl (74-100); Hematocrit 29.8 % (37.0-47.0); Hemoglobin 9.5 g/dL (12.2-16.2); Lymphocytes # 0.2 K/mm3 (0.7-4.5); Lymphocytes % 3.1 % (10-50); Mean Corpuscular Hemoglobin 30.4 pg (27.0-31.2); Mean Corpuscular Volume 95.2 fl (81-99); Mean Platelet Volume 8.8 fl (7.4-10.4); Monocytes # 0.3 K/mm3 (0.1-1.0); Monocytes % 3.6 % (1.7-9.3); Neutrophils % 92.6 % (37.0-80.0); Platelet Count 370 K/mm3 (142-424); Red Blood Count 3.13 M/mm3 (4.20-5.40); Red Cell Distribution Width 16.2 % (11.5-17.5); Total Protein,Serum 6.9 g/dl (6.3-8.2); White Blood Count 7.6 K/mm3 (4.8-10.8)
[2021-06-29 14:20] LABS: MANUAL DIFFERENTIAL MANUAL DIFFERENTIAL (MANUAL DIFF)
--- NOTE | 2021-06-29 14:44 | PC.NURSE ---
pt in CT reporting the last 2 times she got IV contrast she vomited. Notified ER MD who ordered pre medications for pt. Pt medicated per APR in CT room. will continue to monitor
--- NOTE | 2021-06-29 14:52 | PC.NURSE ---
patient back from CT with stretcher by vehicle maintenance technician x 2
--- NOTE | 2021-06-29 14:59 | PC.NURSE ---
pt sitting up in bed on phone at this time, states no needs at this time, call light within reach, will continue to monitor
[2021-06-29 15:03] LABS: Burr Cells 1+; Lymphocytes % 4 % (10-50); Monocytes % 2 % (2-9); Neutrophils % 90 % (42-76); Platelet Estimate Normal; Total Cells Counted 100
--- NOTE | 2021-06-29 16:22 | CA_ITS ---
FINAL REPORT TECHNIQUE: Color Doppler, duplex Doppler and compression sonography of the right lower extremity venous system was performed. CLINICAL HISTORY: CERVICAL CA WITH METS,SEVERE RT GROIN/LEG PAIN,EDEMA FINDINGS: There is no evidence of deep venous thrombosis from the level of the groin to the calf. The veins are patent and compressible. IMPRESSION: No evidence of deep venous thrombosis right lower extremity. Reviewed, Interpreted and Dictated by Pako Slade III, MD Transcribed by Guero Pascual Authenticated by Pako Slade III, MD on 06/30/2021 07:35:[address] [facility]
--- NOTE | 2021-06-29 16:38 | PC.NURSE ---
Called [facility] to contact Dr. Gregg or whoever is bat person for ED MD
--- NOTE | 2021-06-29 16:48 | PC.NURSE ---
Dr. Vazquez speaking with Dr. Gregg with [facility], Oncologist
--- NOTE | 2021-06-29 17:00 | PC.NURSE ---
per dr. yang at [facility] accepts pt in transfer, on beds available at this time.
--- NOTE | 2021-06-29 18:14 | PC.NURSE ---
pt was incontinent of urine, assisted pt with cleaning up, new pad and mesh panties on pt. Pt in a hospital bed for more comfort. Supper tray ordered for pt. Pt given TV remote and fresh warm blanket. Pt has call light within reach. Will continue to monitor
--- NOTE | 2021-06-29 18:30 | PC.NURSE ---
covid swab sent to lab; patient sitting up eating supper and watching television
[2021-06-29 18:33] LABS: Coronavirus 19, PCR Not Detected (NotDetected); Influenza A, PCR Not Detected (NotDetected); Influenza B, PCR Not Detected (NotDetected)
--- NOTE | 2021-06-29 21:00 | PC.NURSE ---
pt helped to change pads and chux. Given warm blanket and pillow
--- NOTE | 2021-06-29 22:41 | PC.NURSE ---
Spoke with Tiff at [facility]. She advised all beds were full at this time, bed status would depend on discharges in am.
[2021-06-30] VITALS (16 sets, daily range): BP systolic 76–94; BP diastolic 45–60; PULSE 90–103; RESP 16–18; TEMP 36.6–36.8; O2SAT 92–98
--- NOTE | 2021-06-30 00:35 | PC.NURSE ---
Pt repositioned for comfort. No new needs at this time.
--- NOTE | 2021-06-30 01:45 | PC.NURSE ---
Pt resting in bed, no needs at this time
--- NOTE | 2021-06-30 04:20 | PC.NURSE ---
pt up to BSC, linens changed at this time.
[2021-06-30 04:34] LABS: Microscopic, Urine URINE MICROSCOPIC (MICROSCOPIC)
[2021-06-30 04:43] LABS: Appearance,Urine SL CLOUDY (Clear); Bilirubin,Urine Negative (Negative); Blood, Urine 2+ (Negative); Color,Urine YELLOW (Yellow); Glucose,Urine (UA) Negative (Negative); Ketones,Urine Negative (Negative); Leukocyte Esterase,Urine 2+ (Negative); Nitrate,Urine Negative (Negative); PH,Urine 8.5 (5.0-8.5); Protein,Urine 2+ (Negative); Specific Gravity, Urine 1.015 (1.005-1.030); Urobilinogen,Urine 0.2 EU/dl (0.2)
--- NOTE | 2021-06-30 04:50 | PC.NURSE ---
phone call from Keyla @ [facility] still no beds will depend on discharges, someone will call after noon today to update
[2021-06-30 05:27] LABS: Bacteria,Urine 3+ /lpf; WBC,Urine 20-50 #/hpf (0-3)
--- NOTE | 2021-06-30 06:55 | PC.NURSE ---
Pt sitting up in bed with breakfast tray
--- NOTE | 2021-06-30 07:00 | PC.NURSE ---
pt sitting up in bed, breakfast tray at BS, pt reports not hungry at this time but is drinking. Call light within reach
[2021-06-30 07:18] LABS: Basophils % 0.4 % (0.1-2.0); Eosinophils % 0.4 % (0.1-12.0); Lymphocytes # 0.2 K/mm3 (0.7-4.5); Lymphocytes % 3.9 % (10-50); Mean Corpuscular HGB Conc 31.2 g/dL (31.8-35.4); Mean Corpuscular Hemoglobin 30.1 pg (27.0-31.2); Mean Corpuscular Volume 96.7 fl (81-99); Monocytes # 0.2 K/mm3 (0.1-1.0); Monocytes % 5.2 % (1.7-9.3); Neutrophils # 3.9 K/mm3 (1.8-7.8); Neutrophils % 90.1 % (37.0-80.0); Platelet Count 330 K/mm3 (142-424); Red Blood Count 2.59 M/mm3 (4.20-5.40); Red Cell Distribution Width 16.2 % (11.5-17.5); White Blood Count 4.3 K/mm3 (4.8-10.8)
[2021-06-30 07:21] LABS: Chloride 100 mmol/L (98-107)
[2021-06-30 07:23] LABS: Anion Gap 8.6 mEq/L (5-15); Blood Urea Nitrogen 40 mg/dl (7-17); Calcium 8.1 mg/dl (8.4-10.2); Carbon Dioxide 24 mmol/L (22.0-30.0); Creatinine Clearance Estimated 41 mL/min (50-200); Estimated Glomerular Filt Rate 53 ml/min (>60); GFR (African American) 64 ML/MIN (>60); Glucose 89 mg/dl (74-100); Hemoglobin 7.8 g/dL (12.2-16.2); MANUAL DIFFERENTIAL MANUAL DIFFERENTIAL (MANUAL DIFF); Potassium 3.6 mmoL/L (3.5-5.1); Sodium 129 mmol/L (136-145)
[2021-06-30 07:40] LABS: Anisocytosis 1+; Hypochromasia 1+; Lymphocytes % 3 % (10-50); Macrocytosis 1+; Monocytes % 2 % (2-9); Neutrophils % 95 % (42-76); Platelet Estimate Normal; Total Cells Counted 100
--- NOTE | 2021-06-30 07:48 | PC.NURSE ---
notified ER MD Marin of pt bp low initially but has improved now. Morphine not given. ER states okay to give pt her home dose of oxycodone instead of morphine.
--- NOTE | 2021-06-30 07:55 | PC.NURSE ---
notified ER MD martin of pt morning lab results are in computer and changes on pt CBC from yesterdays labs
--- NOTE | 2021-06-30 09:50 | PC.NURSE ---
flushed IV when started IV antibiotics, IV site was painful and a knot area formed when flushing. IV infiltrated, IV D/C'd. New IV line established in R forearm 22g. will continue to monitor.
--- NOTE | 2021-06-30 10:08 | PC.NURSE ---
pt requesting a neb treatment, pt reports is trying to cough up sputum but is unsuccessful, requesting a neb to help with this. ER MD Ling gave me a verbal order for albuterol nebulizer treatment once time order. Notified RT of order on pt, spoke with brad.
--- NOTE | 2021-06-30 10:16 | PC.NURSE ---
RT at BS
--- NOTE | 2021-06-30 10:47 | PC.NURSE ---
pt up to bsc with staff assist x1, chucks changed on pt bed, pt had been incontinent of urine. pt back to bed with staff assist x1, tolerated fair. pt has redness noted in upper thigh/groin area on RLE, swelling noted, not pitting. call light within reach. will continue to monitor.
--- NOTE | 2021-06-30 11:05 | PC.NURSE ---
contacted bed placement at [facility], staff states so bed availability at this time, no estimation on when a bed will be available. States they will call us twice daily for updates.
--- NOTE | 2021-06-30 11:51 | PC.NURSE ---
pt sitting up in bed watching tv, states no needs at this time. call light withing reach, will continue to monitor
--- NOTE | 2021-06-30 12:57 | PC.NURSE ---
notified ER MD Ling of pt BP checked on both arms pt reports not feeling well. pt has maintenance IVF going at 150mL/hr, ER states to give pt IVF bolus of what is left in pt current IV bag which is approx 800 mL starting IVF bolus at this time will continue to monitor
--- NOTE | 2021-06-30 13:50 | PC.NURSE ---
pt sitting up in bed, given lunch tray
--- NOTE | 2021-06-30 14:46 | PC.NURSE ---
[facility] called with a bed assignment for pt at this time. [facility] pt is going to [place] [id number] report called to Elba Chen RN at [facility] at this time.
--- NOTE | 2021-06-30 14:49 | PC.NURSE ---
notified [facility] of transfer
== END 2021-06-30 16:07 | disposition short-term general hospital (02) ==
PROVIDERS: Emergency Medicine; Emergency Provider Emergency Medicine; PCP Family Medicine
DX: L02.211 Cutaneous abscess of abdominal wall (principal); R53.81 Other malaise; R53.82 Chronic fatigue, unspecified; Z20.822 Contact with and (suspected) exposure to COVID-19; M54.50 Low back pain, unspecified; N28.9 Disorder of kidney and ureter, unspecified; R32 Unspecified urinary incontinence; J44.9 Chronic obstructive pulmonary disease, unspecified; F17.210 Nicotine dependence, cigarettes, uncomplicated; Z79.1 Long term (current) use of non-steroidal anti-inflammatories (NSAID); Z79.51 Long term (current) use of inhaled steroids; Z79.899 Other long term (current) drug therapy; Z85.41 Personal history of malignant neoplasm of cervix uteri; Z85.118 Personal history of other malignant neoplasm of bronchus and lung; Z82.49 Family history of ischemic heart disease and other diseases of the circulatory system; Z83.438 Family history of other disorder of lipoprotein metabolism and other lipidemia; Z80.9 Family history of malignant neoplasm, unspecified; Z83.3 Family history of diabetes mellitus
CPT/HCPCS: 74177; 80048; 80053; 81001; 85007; 85025; 87040; 87086; 93971; 96374; 96375; 96376; 99285; C9803; J2405; J2543; Q9967; U0003; U0005

== ENCOUNTER 2021-07-18 09:40 | Inpatient (IN) | payer OTHER, MEDICAID, SELFPAY ==
[2021-07-18] VITALS (21 sets, daily range): BP systolic 72–110; BP diastolic 41–73; PULSE 62–108; RESP 6–24; TEMP 36.7–36.8; O2SAT 88–100; BMI 16.6; BMI 14.8
--- NOTE | 2021-07-18 09:45 | PC.NURSE ---
Dr. Villela at BS
--- NOTE | 2021-07-18 09:45 | PC.NURSE ---
Respiratory at BS
--- NOTE | 2021-07-18 09:46 | CT_ITS ---
PROCEDURE INFORMATION: Exam: CT Chest Without Contrast; Diagnostic Exam date and time: 07/18/2021 11:59 AM Age: 50 years old Clinical indication: Shortness of breath; Additional info: Concern for pe- unable to do contrast due to 30 gfr-- patient has metastatic ovarian cancer TECHNIQUE: Imaging protocol: Diagnostic computed tomography of the chest without contrast. Radiation optimization: All CT scans at this facility use at least one of these dose optimization techniques: automated exposure control; mA and/or kV adjustment per patient size (includes targeted exams where dose is matched to clinical indication); or iterative reconstruction. COMPARISON: CT CHEST WO CON 06/15/2021 5:15 AM FINDINGS: Lungs: Since previous examination, there is overall worsening of patchy infiltrates with associated bronchial wall thickening bilaterally. Confluent airspace densities are most significant in the right middle and lower lobes. Compatible with worsening multifocal pneumonia. Given submitted history, underlying metastatic disease cannot be excluded. Pleural spaces: Unremarkable. No pneumothorax. No pleural effusion. Heart: Unremarkable. No cardiomegaly. No pericardial effusion. Lymph nodes: Unremarkable. No enlarged lymph nodes. Vasculature: Unremarkable. No aortic aneurysm. Bones/joints: Unremarkable. No acute fracture. Soft tissues: Unremarkable. IMPRESSION: Since previous examination, there is overall worsening of patchy infiltrates with associated bronchial wall thickening bilaterally. Confluent airspace densities are most significant in the right middle and lower lobes. Compatible with worsening multifocal pneumonia. Given submitted history, underlying metastatic disease cannot be excluded.
--- NOTE | 2021-07-18 09:46 | XR_ITS ---
PROCEDURE INFORMATION: Exam: XR Chest Exam date and time: 07/18/2021 11:42 AM Age: 50 years old Clinical indication: Shortness of breath; Additional info: SOA TECHNIQUE: Imaging protocol: XR of the chest. Views: 1 view. COMPARISON: CT CHEST WO CON 06/15/2021 5:15 AM FINDINGS: Lungs: Patchy airspace densities in the mid to lower lung zones, with confluent consolidation in the right base. Pleural spaces: Unremarkable. No pleural effusion. No pneumothorax. Heart/Mediastinum: Unremarkable. No cardiomegaly. Bones/joints: Unremarkable. IMPRESSION: Patchy airspace densities in the mid to lower lung zones, with confluent consolidation in the right base.
--- NOTE | 2021-07-18 09:49 | ECG_ITS ---
APPROVED REPORT Exam: Resting ECG HR:91 bpm ECG Measurements Heart Rate 91 AXES NY 120 P 82 QRSd 80 QRS 82 QT 355 T 95 QTc 404 Conclusion SINUS RHYTHM RIGHT ATRIAL ENLARGEMENT [0.3mV P-WAVE] LEFT VENTRICULAR HYPERTROPHY AND ST-T CHANGE [VOLTAGE CRITERIA PLUS ST/T ABNORMALITY] ABNORMAL ECG UNCONFIRMED REPORT Electronically signed by : Chay Goins MD 07/19/2021 09:40:31
--- NOTE | 2021-07-18 09:51 | CT_ITS ---
PROCEDURE INFORMATION: Exam: CT Abdomen And Pelvis Without Contrast Exam date and time: 07/18/2021 12:03 PM Age: 50 years old Clinical indication: Nausea; Additional info: Metastatic cervical cancer-- is in pain and SOB and nausea TECHNIQUE: Imaging protocol: Computed tomography of the abdomen and pelvis without contrast. Radiation optimization: All CT scans at this facility use at least one of these dose optimization techniques: automated exposure control; mA and/or kV adjustment per patient size (includes targeted exams where dose is matched to clinical indication); or iterative reconstruction. COMPARISON: CT ABDOMEN PELVIS W CON 06/29/2021 2:35 PM FINDINGS: Tubes, catheters and devices: Both catheters terminate in the urinary bladder. Lungs: Abnormal lung bases detailed on CT chest obtained the same day. Liver: Normal. No mass. Gallbladder and bile ducts: Previous cholecystectomy. Pancreas: Normal. No ductal dilation. Spleen: Normal. No splenomegaly. Adrenal glands: Normal. No mass. Kidneys and ureters: Bilateral ureteral stents evident. Right ureteral stent starts at the proximal right ureter, rather than renal pelvis. No definite hydronephrosis seen. Stomach and bowel: Unremarkable. No obstruction. No mucosal thickening. Appendix: No evidence of appendicitis. Intraperitoneal space: Unremarkable. No free air. No significant fluid collection. Vasculature: Unremarkable. No abdominal aortic aneurysm. Lymph nodes: Unremarkable. No enlarged lymph nodes. Urinary bladder: Unremarkable as visualized. Reproductive: Unremarkable as visualized. Bones/joints: Unremarkable. No acute fracture. Soft tissues: There has been interval debridement of previously seen multiloculated right lower quadrant and right leg collection. Decreased amount of fluid is noted, with introduction of gas. Largest collection evident in the region of the right iliacus muscle, measuring 8 x 1.5 cm. IMPRESSION: 1. Abnormal lung bases detailed on CT chest obtained the same day. 2. Bilateral ureteral stents evident. Right ureteral stent starts at the proximal right ureter, rather than renal pelvis. No definite hydronephrosis seen. Both catheters terminate in the urinary bladder. 3. There has been interval debridement of previously seen multiloculated right lower quadrant and right leg collection. Decreased amount of fluid is noted, with introduction of gas. Largest collection evident in the region of the right iliacus muscle, measuring 8 x 1.5 cm.
--- NOTE | 2021-07-18 09:54 | HMH.EDGENADL ---
ED Disposition Clinical Impression: Primary cervical cancer with metastasis to other site, Acute respiratory failure with hypoxia Disposition: Admitted As Inpatient Condition on Discharge: Fair - Critical Care Critical Care Time: No Attestation: On 07/18/21, the high probability of a clinically significant, sudden or life threatening deterioration of the following system(s) required my full and direct attention, intervention and personal management. The time I documented below is in addition to time spent performing reported procedures but includes the following listed in this critical care notation. Medical Decision Making - Medical Records Medical records reviewed: Yes: I reviewed the patient's medical records. - Bobby Inquiry Pt receiving controlled substance: No Vital Signs: 07/18/21 09:41 07/18/21 10:00 07/18/21 10:02 Temperature 98.1 F Temperature Source Oral Pulse Rate 62 86 Pulse Rate [Left Radial] 108 H Respiratory Rate 24 Blood Pressure 94/58 L Blood Pressure [Right Arm] 96/68 L Blood Pressure Mean Blood Pressure Mean [Right Arm] 77 Blood Pressure Source Automatic Cuff Blood Pressure Source [Right Arm] Automatic Cuff Blood Pressure Position Sitting Blood Pressure Position [Right Arm] Sitting 02 Sat by Pulse Oximetry 88 L 89 L Oxygen Delivery Method Non-Rebreather Oxygen Flow Rate (LPM) 15 07/18/21 10:35 07/18/21 11:00 07/18/21 11:30 Temperature Temperature Source Pulse Rate 95 H 100 H 98 H Pulse Rate [Left Radial] Respiratory Rate Blood Pressure 110/73 89/56 L 80/49 L Blood Pressure [Right Arm] Blood Pressure Mean 67 58 Blood Pressure Mean [Right Arm] Blood Pressure Source Automatic Cuff Blood Pressure Source [Right Arm] Blood Pressure Position Sitting Blood Pressure Position [Right Arm] 02 Sat by Pulse Oximetry 95 92 L 93 L Oxygen Delivery Method BiPAP Non-Rebreather Non-Rebreather Oxygen Flow Rate (LPM) 07/18/21 11:35 07/18/21 12:13 07/18/21 12:30 Temperature Temperature Source Pulse Rate 90 95 H 93 H Pulse Rate [Left Radial] Respiratory Rate Blood Pressure 79/49 L 82/47 L 79/56 L Blood Pressure [Right Arm] Blood Pressure Mean 53 57 59 Blood Pressure Mean [Right Arm] Blood Pressure Source Blood Pressure Source [Right Arm] Blood Pressure Position Blood Pressure Position [Right Arm] 02 Sat by Pulse Oximetry 99 99 100 Oxygen Delivery Method Non-Rebreather Non-Rebreather Non-Rebreather Oxygen Flow Rate (LPM) 07/18/21 13:00 07/18/21 13:30 07/18/21 14:00 Temperature Temperature Source Pulse Rate 96 H 98 H 92 H Pulse Rate [Left Radial] Respiratory Rate Blood Pressure 78/54 L 85/47 L 80/53 L Blood Pressure [Right Arm] Blood Pressure Mean 59 66 58 Blood Pressure Mean [Right Arm] Blood Pressure Source Blood Pressure Source [Right Arm] Blood Pressure Position Blood Pressure Position [Right Arm] 02 Sat by Pulse Oximetry 100 98 98 Oxygen Delivery Method Non-Rebreather Non-Rebreather Non-Rebreather Oxygen Flow Rate (LPM) - Lab Data Lab results reviewed: Yes: I reviewed the patient's lab results. Lab Results 07/18/21 09:56: Specimen Source Right radial, O2 % 15lpm, ABG pH 7.38, ABG pCO2 48.8 H, ABG pO2 55.6 L, ABG HCO3 28.2 H, ABG Total CO2 29.7 H, ABG O2 Saturation 86 L*, ABG Base Excess 3.1 H, Master Test Acceptable 07/18/21 10:45: WBC 16.4 H, RBC 3.59 L, Hgb 10.8 L, Hct 34.8 L, MCV 96.9, MCH 30.1, MCHC 31.1 L, RDW 19.1 H, Plt Count 286, MPV 9.0, Neut % (Auto) 96.1 H, Lymph % (Auto) 1.0 L, [place] % (Auto) 2.2, Eos % (Auto) 0.1, Baso % (Auto) 0.6, Neut # (Auto) 15.8 H, Lymph # (Auto) 0.2 L, [place] # (Auto) 0.4, Eos # (Auto) 0.0, Baso # (Auto) 0.1, Total Counted 100, Neutrophils % (Manual) 77 H, Band Neutrophils % 17.0 H, Lymphocytes % (Manual) 4 L, Monocytes % (Manual) 2, Platelet Estimate Normal, RBC Morphology Not Reportable, Stomatocytes 1+ 07/18/21 10:
[2021-07-18 09:59] LABS: ABG Base Excess 3.1 mmol/L (-2.4-2.3); ABG HCO3 28.2 mmhg (22.0-26.0); ABG Oxygen Saturation 86 % (90-100); ABG PCO2 48.8 mmhg (35.0-45.0); ABG PH 7.38 mmol/L (7.35-7.45); ABG PO2 55.6 mmhg (80-100); ABG TCO2 29.7 mmhg (23-27)
[2021-07-18 10:00] LABS: Allen's Test Acceptable; Oxygen 15LPM %; Source Right Radial
--- NOTE | 2021-07-18 10:04 | PC.NURSE ---
LISBETH Forbes at BS
--- NOTE | 2021-07-18 10:18 | PC.NURSE ---
LISBETH Forbes changed wound dressing to right hip and obtained a wound culture that was sent to lab. NUHA JENKINS at to assess the wound sight.
--- NOTE | 2021-07-18 10:25 | PC.NURSE ---
Amelia Forbes and Janine Leroy in room with pt taking to rest room; resp in room as well
--- NOTE | 2021-07-18 10:35 | PC.NURSE ---
EKG delayed due to patient being short of breath; pt was unable to lay back until we were able to get her on BIPAP.
[2021-07-18 11:06] LABS: Basophils # 0.1 K/mm3 (0-0.2); Basophils % 0.6 % (0.1-2.0); Eosinophils % 0.1 % (0.1-12.0); Hematocrit 34.8 % (37.0-47.0); Hemoglobin 10.8 g/dL (12.2-16.2); Lymphocytes # 0.2 K/mm3 (0.7-4.5); Mean Corpuscular HGB Conc 31.1 g/dL (31.8-35.4); Mean Corpuscular Hemoglobin 30.1 pg (27.0-31.2); Mean Corpuscular Volume 96.9 fl (81-99); Monocytes # 0.4 K/mm3 (0.1-1.0); Monocytes % 2.2 % (1.7-9.3); Neutrophils # 15.8 K/mm3 (1.8-7.8); Neutrophils % 96.1 % (37.0-80.0); Platelet Count 286 K/mm3 (142-424); Red Blood Count 3.59 M/mm3 (4.20-5.40); Red Cell Distribution Width 19.1 % (11.5-17.5); White Blood Count 16.4 K/mm3 (4.8-10.8)
--- NOTE | 2021-07-18 11:06 | PC.NURSE ---
pt is wanting to go back on non-rebreather over using the BiPap; her o2 sat is 91% with a non-rebreather mask
[2021-07-18 11:13] LABS: Chloride 92 mmol/L (98-107); Potassium 4.6 mmoL/L (3.5-5.1); Sodium 131 mmol/L (136-145)
[2021-07-18 11:16] LABS: Alanine Aminotransferase 31 U/L (12-78); Albumin Level 3.6 g/dl (3.5-5.0); Albumin/Globulin Ratio 0.9 (1.1-1.8); Alkaline Phosphatase 141 U/L (38-126); Anion Gap 15.6 mEq/L (5-15); Aspartate Amino Transferase 33 U/L (14-36); Bilirubin,Total 0.7 mg/dl (0.2-1.3); Blood Urea Nitrogen 57 mg/dl (7-17); Calcium 9.8 mg/dl (8.4-10.2); Carbon Dioxide 28 mmol/L (22.0-30.0); Creatinine Clearance Estimated 28 mL/min (50-200); Estimated Glomerular Filt Rate 34 ml/min (>60); GFR (African American) 41 ML/MIN (>60); Globulin 3.8 g/dL (1.3-3.2); Glucose 121 mg/dl (74-100); MANUAL DIFFERENTIAL MANUAL DIFFERENTIAL (MANUAL DIFF); Total Protein,Serum 7.4 g/dl (6.3-8.2)
[2021-07-18 11:28] LABS: Troponin I 0.03 ng/ml (0.00-0.034)
--- NOTE | 2021-07-18 11:29 | PC.NURSE ---
Pt. refused to wear bipap after 10min. She was returned to B
[2021-07-18 11:51] LABS: Lymphocytes % 4 % (10-50); Monocytes % 2 % (2-9); Neutrophils % 77 % (42-76); Platelet Estimate Normal; Total Cells Counted 100
[2021-07-18 11:53] LABS: Stomatocytes 1+
--- NOTE | 2021-07-18 11:57 | PC.NURSE ---
patient to CT by stretcher with microcomputer technician x 2
--- NOTE | 2021-07-18 12:12 | PC.NURSE ---
patient back from radiology by stretcher with hydro plant technician x 2
--- NOTE | 2021-07-18 12:22 | PC.NURSE ---
Paged Oncologist with [facility]; Dr. Jane Shaw is the [facility] bone roller physician
--- NOTE | 2021-07-18 12:34 | PC.NURSE ---
Dr. saenz speaking with Dr. Donald, oncologist at [facility]
--- NOTE | 2021-07-18 12:41 | PC.NURSE ---
Contacting patients daughter, Amparo to speak with ED MD; she is speaking with Dr. Villela at this time
--- NOTE | 2021-07-18 13:48 | PC.NURSE ---
paged Dr. Goins for ED MD
--- NOTE | 2021-07-18 13:49 | PC.NURSE ---
Dr. Villela speaking with Dr. Goins
--- NOTE | 2021-07-18 13:52 | PC.NURSE ---
Spoke with Zuleika (HOUSE) regarding patient admission
--- NOTE | 2021-07-18 13:59 | HMH.PHACONS ---
- Pharmacy Consult Date: 07/18/21 Time: 13:59 Referring provider: DR. VILLA Reason for Consult:: VANCOMYCIN DOSING Allergies and ADEs:: Allergies Allergy/AdvReac Type Severity Reaction Status Date / Time No Known Allergies Allergy Verified 07/13/19 03:38 Home Medications:: Home Medications Medication Instructions Recorded Confirmed Type Albuterol Sulfate [Albuterol 2 puffs IH Q6HP PRN 05/03/21 06/29/21 History Sulfate Hfa] Mirtazapine [Remeron 15mg tablet] 15 mg PO HS 06/15/21 06/29/21 History Oxycodone HCl [Oxycodone (IR) 10mg 10 mg PO Q6HP PRN 06/15/21 06/29/21 History Tab] ondansetron HCL [Ondansetron HCl] 8 mg PO TIDP PRN 06/15/21 06/29/21 History Albuterol Sulfate [Albuterol 2.5 mg IH Q6HP PRN #50 ml 06/17/21 06/29/21 Rx 0.083% 2.5mg/3mL neb] Height: 1.57 m Weight: 41.277 kg Laboratory Results:: Laboratory Results - last 24 hr 07/18/21 09:56: Specimen Source Right radial, O2 % 15lpm, ABG pH 7.38, ABG pCO2 48.8 H, ABG pO2 55.6 L, ABG HCO3 28.2 H, ABG Total CO2 29.7 H, ABG O2 Saturation 86 L*, ABG Base Excess 3.1 H, Master Test Acceptable 07/18/21 10:45: WBC 16.4 H, RBC 3.59 L, Hgb 10.8 L, Hct 34.8 L, MCV 96.9, MCH 30.1, MCHC 31.1 L, RDW 19.1 H, Plt Count 286, MPV 9.0, Neut % (Auto) 96.1 H, Lymph % (Auto) 1.0 L, Moore % (Auto) 2.2, Eos % (Auto) 0.1, Baso % (Auto) 0.6, Neut # (Auto) 15.8 H, Lymph # (Auto) 0.2 L, Moore # (Auto) 0.4, Eos # (Auto) 0.0, Baso # (Auto) 0.1, Total Counted 100, Neutrophils % (Manual) 77 H, Band Neutrophils % 17.0 H, Lymphocytes % (Manual) 4 L, Monocytes % (Manual) 2, Platelet Estimate Normal, RBC Morphology Not Reportable, Stomatocytes 1+ 07/18/21 10:45: Sodium 131 L, Potassium 4.6, Chloride 92 L, Carbon Dioxide 28, Anion Gap 15.6 H, BUN 57 H, Creatinine 1.60 H, Estimated Creat Clear 28, Estimated GFR 34 L, Est GFR ( Amer) 41 L, Glucose 121 H, Calcium 9.8, Total Bilirubin 0.7, AST 33, ALT 31, Alkaline Phosphatase 141 H, Troponin I 0.03, Total Protein 7.4, Albumin 3.6, Globulin 3.8 H, Albumin/Globulin Ratio 0.9 L Medical History: Reports:: Cancer (Metastatic cervical cancer), Chronic Obstructive Pulmonary Disease (COPD), Renal Disease Denies:: Diabetes Mellitus Type 1, Diabetes Mellitus Type 2 Assessment and Plan - Assessment and plan all Dx Assessment and Plan for all problems:: Pharmacokinetic dosing service Objective: Patient: Floor: Age: 50 yo Serum creatinine: 1.60 mg/dL Height: 61.8 Inches Weight (kg): 41.3 Assessment: IBW (kg): 49.64 Dosing wt(kg): 41.3 Estimated Creatinine clearance (ml/min): 27.7 CRCL method: Cockcroft and Gault using ibw(default). Drug selected: Vancomycin Loading dose (mg): Vd (liters): 33.0 (factor used: 0.8 L/kg) Farhan (hr-1): 0.027 Half life (hrs): 25.67 CLvanco=?? 0.891 L/hr Recommended dose: 750 mg Interval: 36 hrs Infusion time (hrs): 2.0 Predicted peak (mcg/mL): 35.6 Predicted trough (mcg/mL): 14.22 Total body weight is being used for vancomycin dosing. Recommendations: Give Vancomycin 750 mg q 36 hrs with an expected Cpeak of 35.6 mcg/ml and an expected Ctrough of 14.22 mcg/ml AUC 0-24 /CARMELA Data: CARMELA 0.5 mcg/mL:?? AUC/CARMELA:? 1122.3 CARMELA 1.0 mcg/mL:?? AUC/CARMELA:? 561.2 --------- CARMELA 1.5 mcg/mL:?? AUC/CARMELA:? 374.1 CARMELA 2.0 mcg/mL:?? AUC/CARMELA:? 280.6 Thank you for the consult, will continue to follow. -COLLINS SAM, JUNIORD
--- NOTE | 2021-07-18 14:15 | PC.NURSE ---
PT given a pillow and phone slipper maker to borrow at this time; she reports she is ready for a nap. Updated to her that she has a bed now upstairs, the Nurse just has to give reports. No other needs at this time
--- NOTE | 2021-07-18 14:24 | PC.NURSE ---
pt facetiming family at this time
--- NOTE | 2021-07-18 14:24 | PC.NURSE ---
Attempted to call report on pt, but no answer on the phone that they put me through to.
[2021-07-18 14:26] LABS: Coronavirus 19, PCR Not Detected (NotDetected); Influenza A, PCR Not Detected (NotDetected); Influenza B, PCR Not Detected (NotDetected)
--- NOTE | 2021-07-18 14:37 | PC.NURSE ---
Report given to AprilRN
--- NOTE | 2021-07-18 14:45 | PC.NURSE ---
Daughter/POA: Amparo Jackson
--- NOTE | 2021-07-18 15:01 | PC.NURSE ---
patient watching phone; aware that she has a room upstairs and she will be going up soon. She reports her sister is planning on coming to see her
--- NOTE | 2021-07-18 15:09 | PC.NURSE ---
LISBETH Scott and DANA Means are at BS to transport patient to second floor
--- NOTE | 2021-07-18 16:51 | PC.NURSE ---
pt admission assesment was limited due to pt pain and inability to tolerate repositioning. She has multiple wounds to bottom and R pelvis., Foul odor noted and drainage from site. I spoke with pt regarding treatments and end of life wishes. She is aware that her prognosis is poor but wants everything done to sustain her life. Pt is hypotensive. last BP was 76/[address] Goins regarding pt hypotension and pain management. Morphine was adinistered per prn order. Pt is alert but very weak. She is a total assist and requires two people for repositioning due to the amount of pain shes in. Her daughter Amparo is on her way here. She is POA. Will continue to monitor pt status.
--- NOTE | 2021-07-18 17:07 | PC.WOUNDNOTE ---
UNSTAGEABLE ULCER NOTED TO THE RIGHT PELVIS STAGE 3 NOTED TO THE COCCYX
--- NOTE | 2021-07-18 17:09 | PC.WOUNDNOTE ---
STAGE 3 NOTED TO THE RIGHT BUTTOCKS REDNESS NOTED TO THE RIGHT HIP
[2021-07-18 19:07] LABS: Lactic Acid 1.7 mmol/L (0.7-2.1)
[2021-07-19] VITALS (7 sets, daily range): BP systolic 80–116; BP diastolic 47–61; PULSE 65–95; RESP 17–20; TEMP 36.3–37.1; O2SAT 85–99
[2021-07-19 06:50] LABS: Basophils # 0.1 K/mm3 (0-0.2); Basophils % 0.3 % (0.1-2.0); Eosinophils % 0.2 % (0.1-12.0); Lymphocytes # 0.2 K/mm3 (0.7-4.5); Lymphocytes % 1.2 % (10-50); Mean Corpuscular HGB Conc 31.6 g/dL (31.8-35.4); Mean Corpuscular Hemoglobin 30.4 pg (27.0-31.2); Mean Corpuscular Volume 96.2 fl (81-99); Monocytes # 0.2 K/mm3 (0.1-1.0); Monocytes % 1.6 % (1.7-9.3); Neutrophils # 12.9 K/mm3 (1.8-7.8); Neutrophils % 96.7 % (37.0-80.0); Platelet Count 148 K/mm3 (142-424); Red Cell Distribution Width 19.4 % (11.5-17.5); White Blood Count 13.3 K/mm3 (4.8-10.8)
[2021-07-19 07:05] LABS: MANUAL DIFFERENTIAL MANUAL DIFFERENTIAL (MANUAL DIFF)
[2021-07-19 07:06] LABS: Hemoglobin 7.6 g/dL (12.2-16.2)
[2021-07-19 07:31] LABS: Anion Gap 11.1 mEq/L (5-15); Blood Urea Nitrogen 61 mg/dl (7-17); Calcium 8.3 mg/dl (8.4-10.2); Carbon Dioxide 26 mmol/L (22.0-30.0); Chloride 101 mmol/L (98-107); Creatinine Clearance Estimated 33 mL/min (50-200); Estimated Glomerular Filt Rate 48 ml/min (>60); GFR (African American) 58 ML/MIN (>60); Glucose 71 mg/dl (74-100); Potassium 4.1 mmoL/L (3.5-5.1); Sodium 134 mmol/L (136-145)
[2021-07-19 07:35] LABS: Lymphocytes % 5 % (10-50); Monocytes % 1 % (2-9); Neutrophils % 94 % (42-76); Total Cells Counted 100
[2021-07-19 07:36] LABS: Anisocytosis 1+; Macrocytosis 1+; Platelet Estimate Slight Decrease
--- NOTE | 2021-07-19 07:58 | HMH.PHAVTE ---
[facility] Pharmacy VTE Monitoring - Patient Demographics Admission date: 07/18/21 Report Date: 07/19/21 Time: 07:58 Allergies/Adverse Reactions: Patient Allergies No Known Allergies Allergy (Verified 07/13/19 03:38) Height: 1.57 m Weight: 36.854 kg Patient Problems: Current Active Problems Acute respiratory failure with hypoxia (Acute) Primary cervical cancer with metastasis to other site (Chronic) - VTE Risk Labs: VTE Related Lab Results Hgb 7.6 g/dL (12.2-16.2) L D 07/19/21 06:30 Hct 24.0 % (37.0-47.0) L 07/19/21 06:30 Plt Count 148 K/mm3 (142-424) D 07/19/21 06:30 BUN 61 mg/dl (7-17) H 07/19/21 06:30 Creatinine 1.20 mg/dl (0.52-1.04) H D 07/19/21 06:30 Estimated Creat Clear 33 mL/min (50-200) 07/19/21 06:30 - Prophylaxis VTE Prophylaxis Ordered?: Yes Types of VTE Prophylaxis: TEDS Knee High Location of Applied Device: Bilateral Lower Extremeties
--- NOTE | 2021-07-19 08:11 | PC.NURSE ---
LATE ENTRY (629)- AT THE BEGINNING OF MY SHIFT PT ON 15 L NONREBREATHER, MAINTAINING O2 SATS >95%. PT KEEPS TAKING OXYGEN OFF TO EAT, DRINK, TALK - CAUSING HER O2 SAT TO DROP. TALKED TO PT ABOUT NEED TO KEEP O2 ON. PER MD, WE CAN TRY VAPOTHERM IF PT AGREES. TALKED TO PT ABOUT VAPOTHERM - PT AGREES TO TRY. PT STAYED ON VAPOTHERM 15 L 90% MOST OF THE NIGHT, PT WOULD OCCASIONALLY TAKE OFF VAPOTHERM AND SATS WOULD DROP TO LOW-MID 80S. PT DECIDED SHE LIKED WEARING NON-REBREATHER BETTER. NRB IN USE AT THIS TIME. WE ARE MONITORING PT VIA CONTINUOUS PULSE OX. DRESSING TO R GROIN, AND R BUTTOCKS CHANGED. DRESSINGS SATURATED FROM DRAINAGE AND FOUL ODOR PRESENT. PT VOIDING PER MITZI TO TRY AND AVOID EXCESS MOISTURE TO WOUNDS. PT HAS HAD LOW BPS. SIGNAL FITTER PROVIDER NOTIFIED DURING MY SHIFT FOR THIS ISSUE. INCREASED FLUIDS TO 75ML/HR. NO OTHER ORDERS AT THAT TIME. PT DID NOT REST WELL DURING MY SHIFT. ATTEMPTING TO TURN PT Q2HRS OR PRN, BUT PT HAS SIGNIFICANT PAIN WITH MOVEMENT AND REPOSITIONING. I HAVE MEDICATED PT PER APR Q2HRS FOR PAIN. AROUND 629 PT STILL IN SIGNIFICANT PAIN AFTER MORPHINE, PT STATES SHE TAKES OXYCODONE AT HOME AND GETS BETTER RELIEF FROM THAT. SIGNAL FITTER MD CONTACTED AND ORDERS OBTAINED TO START PTS HOME DOSE OF OXYCODONE AND D/C MORPHINE. MEDICATED PER APR. PASSED ALONG TO DAYSHIFT RN THAT SIGNAL FITTER MD WANTS PTS PCP TO DISCUSS PAIN MANAGEMENT WITH PT DURING AM ROUNDS. IV INFUSING PER ORDER. CALL LIGHT IN REACH. FAMILY AT BEDSIDE.
--- NOTE | 2021-07-19 10:37 | HMH.HP ---
*Admission Date: 07/18/21 *Chief complaint: sob *History of present illness: this patient presented to [facility] -patient is a 50-year-old female presenting to the emergency department chief complaint of shortness of breath. Patient has a significant past medical history of cervical cancer with metastasis to the lungs and is chronically on oxygen at home, History of COPD. Differential diagnosis for this patient includes increased metastasis and tumor burden, pleural effusion, COPD exacerbation, pneumonia, septicemia, pulmonary embolism. Will ordered CT PE to evaluate for pulmonary embolism as a CT abdomen pelvis given patient's cancer, cachexia, patient has a significantly impaired GFR, decided to get CT Noncon given her suspicion for patient having increased tumor burden and COPD exacerbation. Patient was given a DuoNeb and some mild improvement in air. Attempted to place patient on high flow nasal cannula as well as BiPAP, patient refused to wear these, patient was comfortable on a nonrebreather with 15 L. Physical exam patient had significant purulent exudate from her right pelvis, placed patient on broad-spectrum antibiotics for this as well as airspace disease. Discussed patient with her previous oncologist who again stated that there was no further interventions available for the patient in terms of radiation, surgery or chemotherapy. Stated they discussed with the patient her resuscitation status, and patient continued to be a full code despite advisement that she would likely not survive this. Again discussed this with the patient and she stated that she is currently still a full code. I discussed this patient with her daughter, as well as home hospice. Daughter currently does not feel like she can offer the amount of support the patient needs at home. Currently hospice unable to transfer or take patient inpatient, however they will investigate their ability to do so in the future. Given patient's increased oxygen requirements, beyond the 10 L that she is able to get at home, this patient with Dr. Luna who accepted patient onto Dr. Hatch' service. [facility] History I have reviewed the patient's past medical history: Yes Medical History: Reports:: Cancer (Metastatic cervical cancer), Chronic Obstructive Pulmonary Disease (COPD), Renal Disease Denies:: Diabetes Mellitus Type 1, Diabetes Mellitus Type 2 *Have you ever received a pneumonia vaccine?: No *Have you received a flu vaccine this season?: No Other Medical History: Reports: Chemotherapy, Radiation Therapy Other Surgeries: Yes: Cholecystectomy, (x1), Ureter Stent Amputation: No Fractures: No - *Social History Last grade of school completed: Some college Smoking Status: Current every day smoker Tobacco Type: cigarettes # Packs/Day (cigarettes): 1 Alcohol Intake: never Substance Use Type: crack/cocaine *Occupational Status:: disabled Housing: house Household Members: children *Travel in the last 8 weeks: None Family Hx:: Diabetes Review of Systems - Review of Systems Review of systems:: pertinent systems reviewed and negative unless documented below - Constitutional Reports weakness, Denies fever(s) - Eyes Denies change in vision - ENT Reports dry mouth - *Cardiovascular Reports chest pain, Reports shortness of breath - *Respiratory Denies cough - *Gastrointestinal Denies abdominal pain - *Genitourinary Denies blood in urine - *Musculoskeletal Denies joint pain - Integumentary/Breasts Reports skin ulcer - *Neurologic Denies localized weakness - Psychiatric Reports anxiety Meds Home Medications Medication Instructions Recorded Confirmed Type Albuterol Sulfate [Albuterol 2 puffs IH Q6HP PRN 05/03/21 07/19/21 History Sulfate Hfa] Mirtazapine [Remeron 15mg tablet] 15 mg PO HS 06/15/21 07/19/21 History ondansetron HCL [Ondansetron HCl] 8 mg PO TIDP PRN 06/15/21 07/19/21 History Albuterol Sulfate [Albuterol 2.5 mg IH Q6HP PRN #50 ml
--- NOTE | 2021-07-19 10:50 | HMH.PHAINT ---
MEDICATION RECONCILIATION COMPLETED ON PATIENT USING EXTERNAL FILL HISTORY FROM PHARMACY, LIVE REPORT, AND CONVERSATION WITH PATIENT'S DAUGHTER. -JUNIOR ENRIQUEZD
--- NOTE | 2021-07-19 18:13 | PC.NURSE ---
Pt has sat up in bed the whole shift. I attempted to change dressings to her wounds but she refused. She refused vapotherm as well. She removed her NRB this afternoon and oxygen sats dropped to 85%. She wished to keep oxygen off. She was educated on effects of low oxygen and remained on RA. Oxygen saturations did eventually increase to low 90's on RA. Appetite is poor with her refusing her meals. Her sister is at bedside. Bed is locked and in the lowest position, call light within reach.
[2021-07-20] VITALS: BP 109/59; PULSE 101; RESP 18; TEMP 36.8; O2SAT 100; O2SAT 98
[2021-07-20 01:28] LABS: Vancomycin,Trough 8.9 ug/mL (5.0-10.0)
[2021-07-20 04:00] VITALS: BP 95/64; PULSE 65; RESP 18; TEMP 36.9; O2SAT 89
--- NOTE | 2021-07-20 04:00 | PC.NURSE ---
pt restless most of night, and resistive to care, pt will not change position in bed and remains in sitting position slumped over, pt will not keep [address] and attempted to try nasal cannulat 4L with 02 sats 94%; pt drops sats to 85/88% on room air, pt with stage 2 decubitis on buttock and pressure dressing applied, pt is incontinent of urine, attempted purewick but pt will not keep in place, pt remains moist most of time relating to urine, noted open unstageable ulcerative wound to right groin area, in bend of leg, wound was seeping yellow/green exudate; 4x4 and abd dressing applied as gown was soaked with drainage from wound, attempted to start iv because pt unable to keep arm straight to infuse antibiotics unsuccessful, pt may benefit from picc line if continued antibiotic infusion. family remains at bedside; lung sounds diminished
[2021-07-20 05:00] VITALS: BMI 14.9
[2021-07-20 07:20] LABS: Basophils % 0.5 % (0.1-2.0); Eosinophils # 0.1 K/mm3 (0.0-0.4); Eosinophils % 0.7 % (0.1-12.0); Hematocrit 23.4 % (37.0-47.0); Hemoglobin 7.6 g/dL (12.2-16.2); Lymphocytes # 0.3 K/mm3 (0.7-4.5); Lymphocytes % 4.3 % (10-50); Mean Corpuscular HGB Conc 32.7 g/dL (31.8-35.4); Mean Corpuscular Hemoglobin 31.2 pg (27.0-31.2); Mean Corpuscular Volume 95.3 fl (81-99); Mean Platelet Volume 9.1 fl (7.4-10.4); Monocytes # 0.1 K/mm3 (0.1-1.0); Monocytes % 1.7 % (1.7-9.3); Neutrophils # 7.4 K/mm3 (1.8-7.8); Neutrophils % 92.8 % (37.0-80.0); Platelet Count 119 K/mm3 (142-424); Red Blood Count 2.45 M/mm3 (4.20-5.40); Red Cell Distribution Width 19.3 % (11.5-17.5)
[2021-07-20 07:25] LABS: MANUAL DIFFERENTIAL MANUAL DIFFERENTIAL (MANUAL DIFF)
[2021-07-20 07:30] LABS: Anisocytosis 1+; Hypochromasia 1+; Lymphocytes % 5 % (10-50); Macrocytosis 1+; Monocytes % 1 % (2-9); Neutrophils % 88 % (42-76); Total Cells Counted 100
[2021-07-20 07:31] LABS: Ovalocytes 1+; Platelet Estimate Slight Decrease
[2021-07-20 08:00] VITALS: BP 88/55; PULSE 82; RESP 17; TEMP 36.8; O2SAT 91
[2021-07-20 08:04] LABS: Alanine Aminotransferase 15 U/L (12-78); Albumin Level 2.4 g/dl (3.5-5.0); Albumin/Globulin Ratio 0.8 (1.1-1.8); Alkaline Phosphatase 86 U/L (38-126); Anion Gap 14.3 mEq/L (5-15); Aspartate Amino Transferase 29 U/L (14-36); Bilirubin,Total 0.5 mg/dl (0.2-1.3); Blood Urea Nitrogen 59 mg/dl (7-17); Calcium 8.6 mg/dl (8.4-10.2); Carbon Dioxide 20 mmol/L (22.0-30.0); Chloride 105 mmol/L (98-107); Creatinine Clearance Estimated 44 mL/min (50-200); Estimated Glomerular Filt Rate 67 ml/min (>60); GFR (African American) 81 ML/MIN (>60); Glucose 68 mg/dl (74-100); Potassium 4.3 mmoL/L (3.5-5.1); Sodium 135 mmol/L (136-145); Total Protein,Serum 5.4 g/dl (6.3-8.2)
--- NOTE | 2021-07-20 09:21 | SW/DCPLANNER ---
Addendum entered by [facility] 07/21/21 07:48: [facility] Addendum entered by [facility] 07/20/21 15:44: Family has now stated they prefer to discharge to [facility] rather than discharging home. Abigail (Hospice nurse) and Lisa (Fire Safety Director) are coming to speak with patient and family regarding discharge plans. Addendum entered by [facility] 07/20/21 15:07: Patient is requesting IV antibiotic at discharge for positive blood culture. I have informed Rajan saleh/ Lisa Care Navigators. Abigail is coming back to [facility] to speak with patient/family regarding medications at discharge. Hospice recommends P.O. and will discuss this with patient. I have informed patient's nurse (Sunni) that Abigail will be returning to speak with patient/family. Addendum entered by [facility] 07/20/21 14:30: The plan for this patient is to discharge back home today with Hospice Care and oral antibiotic (Bactrim) and will be called into [facility] per Hospice request. Original Note: Per Danni saleh/ Lisa Care Navigators this patient is currently established with Hospice services at home. Danni stated that patient's Hospice nurse (Myah) will be to [facility] to evaluate this patient this AM regarding appropriate discharge plan and if stay is related. I will follow up with Myah once she evaluates this patient.
--- NOTE | 2021-07-20 10:26 | HMH.ACPN2 ---
Internal Medicine - PN: Subj *Date: 07/20/21 *Time: 10:26 Interval history: 50-year-old female patient sitting up in bed resting quietly, she denies any pain at present. Current oxygenation 88% on room air and she does not want to wear her oxygen at present. Hospice to come in and talk to patient today Exam Vital signs and Labs for Last 24 Hours: Temp Pulse Resp BP Pulse Ox 98.2 F 82 17 88/55 L 91 L 07/20/21 08:00 07/20/21 08:00 07/20/21 08:00 07/20/21 08:00 07/20/21 08:00 Laboratory Results - last 24 hr 07/20/21 00:22: Vancomycin Trough 8.9 07/20/21 06:58: Sodium 135 L, Potassium 4.3, Chloride 105, Carbon Dioxide 20 L, Anion Gap 14.3, BUN 59 H, Creatinine 0.90 D, Estimated Creat Clear 44, Estimated GFR 67, Est GFR ( Amer) 81 D, Glucose 68 L, Calcium 8.6, Total Bilirubin 0.5, AST 29, ALT 15 D, Alkaline Phosphatase 86, Total Protein 5.4 L D, Albumin 2.4 L, Globulin 3.0, Albumin/Globulin Ratio 0.8 L 07/20/21 06:58: WBC 8.0 D, RBC 2.45 L, Hgb 7.6 L, Hct 23.4 L, MCV 95.3, MCH 31.2, MCHC 32.7, RDW 19.3 H, Plt Count 119 L, MPV 9.1, Neut % (Auto) 92.8 H, Lymph % (Auto) 4.3 L, [place] % (Auto) 1.7, Eos % (Auto) 0.7, Baso % (Auto) 0.5, Neut # (Auto) 7.4, Lymph # (Auto) 0.3 L, [place] # (Auto) 0.1, Eos # (Auto) 0.1, Baso # (Auto) 0.0, Total Counted 100, Neutrophils % (Manual) 88 H, Band Neutrophils % 6.0, Lymphocytes % (Manual) 5 L, Monocytes % (Manual) 1 L, Platelet Estimate Slight decrease, Hypochromasia 1+, Anisocytosis 1+, Macrocytosis 1+, Ovalocytes 1+ I & O for Last 24 hours: Intake & Output 07/17/21 07/18/21 07/19/21 07/20/21 23:59 23:59 23:59 23:59 Intake Total 2362 / 2 785 / 785 Output Total / Balance 236 / 0 783 / 783 Weight 81 lb 4 oz 81 lb 3.987 oz Microbiology Reports for the Last 24 Hours: Microbiology 07/18/21 10:45 Blood Blood Culture - Preliminary Gram Positive Cocci 07/18/21 10:45 Blood Blood Culture - Preliminary Gram Positive Cocci 07/18/21 10:25 Hip,Right - Drainage Gram Stain - Final 07/18/21 10:25 Hip,Right - Drainage Wound Culture - Preliminary - Constitutional no acute distress, cachectic, chronically ill appearing - *Routine HEENT Exam Head: Present: normocephalic, other ENT: Present: mucous membranes dry - *Routine Neck Exam Present: trachea midline. Absent: tracheal deviation - *Routine Respiratory Exam Present: decreased breath sounds. Absent: accessory muscle use - *Routine Cardiovascular Exam Present: RRR - *Routine Abdominal Exam Present: soft, normoactive bowel sounds. Absent: tenderness, firm - *Routine Extremities Exam Present: full ROM, pulses intact. Absent: cyanosis, clubbing, edema - *Routine Skin Exam Present: erythema, dry, wounds. Absent: intact, cyanosis Comments: Wounds to R Pelvis and Sacral areas - *Routine Neurological Exam Present: alert, altered mental status. Absent: motor deficit - Routine Psychiatric Exam Present: unable to assess Assessment and Plan (1) Low body mass index (BMI) Status: Acute Category: Medical (2) Primary cervical cancer with metastasis to other site Status: Chronic Category: Medical Code(s): C53.9 - Malignant neoplasm of cervix uteri, unspecified (3) Metastasis to lung Status: Chronic Category: Medical Code(s): C78.00 - Secondary malignant neoplasm of unspecified lung - Assessment and plan all Dx Assessment and Plan for all problems:: Rounded with Dr. Marin, all orders per Dr. Marin: 1. Hospice to evaluate patient today
--- NOTE | 2021-07-20 11:30 | P.CONPHA_ITS ---
- Pharmacy Consult Date: 07/20/21 Time: 11:31 Referring provider: DR. COON Reason for Consult:: VANCOMYCIN TROUGH LEVEL Allergies and ADEs:: Allergies Allergy/AdvReac Type Severity Reaction Status Date / Time No Known Allergies Allergy Verified 07/13/19 03:38 Home Medications:: Home Medications Medication Instructions Recorded Confirmed Type Albuterol Sulfate [Albuterol 2 puffs IH Q6HP PRN 05/03/21 07/19/21 History Sulfate Hfa] Mirtazapine [Remeron 15mg tablet] 15 mg PO HS 06/15/21 07/19/21 History ondansetron HCL [Ondansetron HCl] 8 mg PO TIDP PRN 06/15/21 07/19/21 History Albuterol Sulfate [Albuterol 2.5 mg IH Q6HP PRN #50 ml 06/17/21 07/19/21 Rx 0.083% 2.5mg/3mL neb] Hydromorphone HCl [Hydromorphone 2 mg PO Q4HP PRN 07/19/21 07/19/21 History 2mg Tab] Metoclopramide HCl [Metoclopramide 5 mg PO ACHS 07/19/21 07/19/21 History 5mg Tab] Morphine Sulfate [Morphine Sulfate 30 mg PO BID 07/19/21 07/19/21 History ER 15mg Tab] Oxybutynin Chloride 5 mg PO BID 07/19/21 07/19/21 History Prochlorperazine Maleate 10 mg PO Q6HP PRN 07/19/21 07/19/21 History [Compazine 10mg tablet] bisacodyL [Dulcolax 5mg Tablet] 5 - 10 mg PO DAILYP PRN 07/19/21 07/19/21 History Height: 1.57 m Weight: 36.854 kg Laboratory Results:: Laboratory Results - last 24 hr 07/20/21 00:22: Vancomycin Trough 8.9 07/20/21 06:58: Sodium 135 L, Potassium 4.3, Chloride 105, Carbon Dioxide 20 L, Anion Gap 14.3, BUN 59 H, Creatinine 0.90 D, Estimated Creat Clear 44, Estimated GFR 67, Est GFR ( Amer) 81 D, Glucose 68 L, Calcium 8.6, Total Bilirubin 0.5, AST 29, ALT 15 D, Alkaline Phosphatase 86, Total Protein 5.4 L D , Albumin 2.4 L, Globulin 3.0, Albumin/Globulin Ratio 0.8 L 07/20/21 06:58: WBC 8.0 D, RBC 2.45 L, Hgb 7.6 L, Hct 23.4 L, MCV 95.3, MCH 31.2, MCHC 32.7, RDW 19.3 H, Plt Count 119 L, MPV 9.1, Neut % (Auto) 92.8 H, Lymph % (Auto) 4.3 L, [place] % (Auto) 1.7, Eos % (Auto) 0.7, Baso % (Auto) 0.5, Neut # (Auto) 7.4, Lymph # (Auto) 0.3 L, [place] # (Auto) 0.1, Eos # (Auto) 0.1, Baso # (Auto) 0.0, Total Counted 100, Neutrophils % (Manual) 88 H, Band Neutrophils % 6.0, Lymphocytes % (Manual) 5 L, Monocytes % (Manual) 1 L, Platelet Estimate Slight decrease, Hypochromasia 1+, Anisocytosis 1+, Macrocytosis 1+, Ovalocytes 1+ Medical History: Reports:: Cancer (Metastatic cervical cancer), Chronic Obstructive Pulmonary Disease (COPD), Renal Disease Denies:: Diabetes Mellitus Type 1, Diabetes Mellitus Type 2 Assessment and Plan (1) Low body mass index (BMI) Status: Acute Category: Medical (2) Primary cervical cancer with metastasis to other site Status: Chronic Category: Medical Code(s): C53.9 - Malignant neoplasm of cervix uteri, unspecified (3) Metastasis to lung Status: Chronic Category: Medical Code(s): C78.00 - Secondary malignant neoplasm of unspecified lung - Assessment and plan all Dx Assessment and Plan for all problems:: PATIENT'S VANCOMYCIN TROUGH LEVEL WAS 8.9 MCG/ML AFTER THE FIRST DOSE. RECOMMEND CONTINUING WITH VANCOMYCIN 750 MG Q36H AT THIS TIME. WILL CHECK VANCOMYCIN LEVEL TOMORROW.
[2021-07-20 12:00] VITALS: BP 100/65; PULSE 93; RESP 20; TEMP 36.8; O2SAT 90
--- NOTE | 2021-07-20 13:36 | HMH.DCSUM ---
General - General Admission date:: 07/18/21 Discharge date: 07/20/21 HPI HPI: this patient presented to [facility] -patient is a 50-year-old female presenting to the emergency department chief complaint of shortness of breath. Patient has a significant past medical history of cervical cancer with metastasis to the lungs and is chronically on oxygen at home, History of COPD. Differential diagnosis for this patient includes increased metastasis and tumor burden, pleural effusion, COPD exacerbation, pneumonia, septicemia, pulmonary embolism. Will ordered CT PE to evaluate for pulmonary embolism as a CT abdomen pelvis given patient's cancer, cachexia, patient has a significantly impaired GFR, decided to get CT Noncon given her suspicion for patient having increased tumor burden and COPD exacerbation. Patient was given a DuoNeb and some mild improvement in air. Attempted to place patient on high flow nasal cannula as well as BiPAP, patient refused to wear these, patient was comfortable on a nonrebreather with 15 L. Physical exam patient had significant purulent exudate from her right pelvis, placed patient on broad-spectrum antibiotics for this as well as airspace disease. Discussed patient with her previous oncologist who again stated that there was no further interventions available for the patient in terms of radiation, surgery or chemotherapy. Stated they discussed with the patient her resuscitation status, and patient continued to be a full code despite advisement that she would likely not survive this. Again discussed this with the patient and she stated that she is currently still a full code. I discussed this patient with her daughter, as well as home hospice. Daughter currently does not feel like she can offer the amount of support the patient needs at home. Currently hospice unable to transfer or take patient inpatient, however they will investigate their ability to do so in the future. Given patient's increased oxygen requirements, beyond the 10 L that she is able to get at home, this patient with Dr. Luna who accepted patient onto Dr. Hatch' service. Hospital Course Hospital Course: this patient presented to [facility] -patient is a 50-year-old female presenting to the emergency department chief complaint of shortness of breath. Patient has a significant past medical history of cervical cancer with metastasis to the lungs and is chronically on oxygen at home, History of COPD. Differential diagnosis for this patient includes increased metastasis and tumor burden, pleural effusion, COPD exacerbation, pneumonia, septicemia, pulmonary embolism. Will ordered CT PE to evaluate for pulmonary embolism as a CT abdomen pelvis given patient's cancer, cachexia, patient has a significantly impaired GFR, decided to get CT Noncon given her suspicion for patient having increased tumor burden and COPD exacerbation. Patient was given a DuoNeb and some mild improvement in air. Attempted to place patient on high flow nasal cannula as well as BiPAP, patient refused to wear these, patient was comfortable on a nonrebreather with 15 L. Physical exam patient had significant purulent exudate from her right pelvis, placed patient on broad-spectrum antibiotics for this as well as airspace disease. Discussed patient with her previous oncologist who again stated that there was no further interventions available for the patient in terms of radiation, surgery or chemotherapy. Stated they discussed with the patient her resuscitation status, and patient continued to be a full code despite advisement that she would likely not survive this. Again discussed this with the patient and she stated that she is currently still a full code. I discussed this patient with her daughter, as well as home hospice (per Dr. Marin). Patient was admitted on nonrebreather after she refused BiPAP. Was convinced to use Vapotherm, which she used for a while and refused, then was placed ba
[2021-07-20 14:35] VITALS: BMI 14.9
--- NOTE | 2021-07-20 15:01 | PC.NURSE ---
Discharge planning still in progress. school occupational therapist on her way to discuss with family.
[2021-07-20 16:00] VITALS: BP 88/55; PULSE 82; RESP 17; TEMP 36.8
--- NOTE | 2021-07-20 16:03 | PC.NURSE ---
Family has decided they are unable to care for patient at home, care management and hospice notified; ultrasonic solderer is on her way here to talk with family;
--- NOTE | 2021-07-20 17:15 | PC.NURSE ---
geoint analyst here to discuss DC options with familyh
--- NOTE | 2021-07-20 17:35 | PC.NURSE ---
Pt dcing to [facility], [address] [facility], 4th floor; report to be called to Jose Antonio @ [phone]
--- NOTE | 2021-07-20 17:42 | PC.NURSE ---
report called to Jose Antonio at hospice care facility
--- NOTE | 2021-07-20 17:48 | PC.NURSE ---
EMS notified for transport
--- NOTE | 2021-07-20 18:17 | PC.NURSE ---
EMS here to transport patient
--- NOTE | 2021-07-20 18:32 | PC.NURSE ---
0.25 MG IV ativan administered @ 1810. Order faxed to [employer], waiting for it show up on apr to document
== END 2021-07-20 18:24 | disposition hospice, inpatient (51) | DRG 189 ==
LOC: ER 10:32 → 2ND 14:15
PROVIDERS: Admitting Provider Internal Medicine Adolescent Medicine; Emergency Provider Emergency Medicine; PCP Family Medicine; Visit Provider Family Medicine
DX: J96.01 Acute respiratory failure with hypoxia (principal); E43 Unspecified severe protein-calorie malnutrition; C78.02 Secondary malignant neoplasm of left lung; C78.01 Secondary malignant neoplasm of right lung; Z68.1 Body mass index [BMI] 19.9 or less, adult; Z51.5 Encounter for palliative care; C53.9 Malignant neoplasm of cervix uteri, unspecified; J44.9 Chronic obstructive pulmonary disease, unspecified; F17.290 Nicotine dependence, other tobacco product, uncomplicated; Z79.899 Other long term (current) drug therapy; Z99.81 Dependence on supplemental oxygen
CPT/HCPCS: 36415; 71045; 71250; 74176; 80048; 80053; 80202; 82803; 83605; 84484; 85007; 85025; 87040; 87070; 87077; 87186; 87205; 94760; 96375; 99285; C9803; J2405; J3370; U0003; U0005